=== PATIENT | male | born 1950 ===

== ENCOUNTER 2019-08-17 07:11 | Inpatient (IN) | payer MEDICARE ==
[~2019-08-17] VITALS: Ht 177.8 cm; Wt 93.6 kg
[2019-08-17] MEDS ORDERED: DIVA250T PO (12:00)
[2019-08-17] MEDS ORDERED: GABA-585 PO ×2 (12:00)
[2019-08-17] MEDS ORDERED: ALPR0.5T PO (12:00)
[2019-08-17] MEDS ORDERED: OMEP20CA16 PO (12:00)
[2019-08-17] MEDS ORDERED: TAMS0.4C97 PO (12:00)
[2019-08-17] MEDS ORDERED: AMAN100T PO (12:00)
[2019-08-17] MEDS ORDERED: ASPI-630 PO (12:00)
[2019-08-17] MEDS ORDERED: CARB1TAB22 PO (12:00)
[2019-08-17] MEDS ORDERED: carbidopa/levodopa PO (12:00)
[2019-08-17] MEDS ORDERED: DOCU100C28 PO (12:00)
[2019-08-17] MEDS ORDERED: QUET200T4 PO (12:00)
[2019-08-17] MEDS ORDERED: QUET50TA5 PO (12:00)
[2019-08-17] MEDS ORDERED: LEVO75TA5 PO (12:00)
[2019-08-17] MEDS ORDERED: LAMO100T37 PO (12:00)
[2019-08-17] MEDS ORDERED: MELA10TA2 PO (12:00)
[2019-08-17] MEDS ORDERED: CABE0.5T PO (12:00)
[2019-08-17] MEDS ORDERED: LAMO200T6 PO (15:55)
[2019-08-17 15:57] VITALS: BP 148/94
[2019-08-17] MEDS ORDERED: NON FORMULARY ITEM (Lamotrigine 200 MG) PO PRN (16:00)
[2019-08-17] MEDS ORDERED: MELA3TAB43 PO (16:02)
[2019-08-17] MEDS ORDERED: GLIP5TAB10 PO (16:02)
[2019-08-17] MEDS ORDERED: TRAZ-120 PO (16:09)
[2019-08-17] MEDS ORDERED: LORA-254 PO (16:09)
[2019-08-17] MEDS ORDERED: METHYL SALICYLATE/MENTHOL TOPICAL OINTMENT 57GM TUBE. TP PRN (16:15)
[2019-08-17] MEDS ORDERED: MAGNESIUM HYDROXIDE 2,400 MG/30 ML ORAL.SUSP. PO PRN (16:15)
[2019-08-17] MEDS ORDERED: ACETAMINOPHEN 325 MG TABLET PO PRN (16:15)
[2019-08-17] MEDS: CARBIDOPA/LEVODOPA 25/100MG TABLET PO SCH (16:30)
[2019-08-17] MEDS: QUEtiapine 100 MG TABLET. PO SCH (17:00)
[2019-08-17] MEDS: DIVALPROEX ER 250 MG TAB.ER.24H. PO SCH (17:00)
[2019-08-17 19:27] LABS: BASO % 1 % (0-3); EOS # 0.2 x10^3/uL (0.0-0.7); EOS % 6 % (0-3); HEMATOCRIT 37.5 % (39.0-53.0); HEMOGLOBIN 12.2 g/dL (13.0-17.5); LYMPH # 1.2 x10^3/uL (1.0-4.8); LYMPH % 40 % (24-48); MEAN CORPUSCULAR HEMOGLOBIN 29 pg (25-35); MEAN CORPUSCULAR HGB CONC 33 g/dL (31-37); MEAN CORPUSCULAR VOLUME 89 fL (79-100); MONO # 0.2 x10^3/uL (0.0-1.1); MONO % 7 % (0-9); NEUT # 1.4 x10^3uL (1.8-7.7); NEUT % 47 % (31-73); PLATELET COUNT 118 x10^3/uL (140-400); RED CELL DISTRIBUTION WIDTH 14.9 % (11.5-14.5); WHITE BLOOD COUNT 3.1 x10^3/uL (4.0-11.0)
[2019-08-17 19:41] LABS: ALBUMIN 3.7 g/dL (3.4-5.0); ALBUMIN/GLOBULIN RATIO 0.9 (1.0-1.7); ALK PHOS 96 U/L (46-116); ALT (SGPT) 16 U/L (16-63); ANION GAP 7 (6-14); AST (SGOT) 38 U/L (15-37); BLOOD UREA NITROGEN 35 mg/dL (8-26); BUN/CREATININE RATIO 18 (6-20); CALCIUM 9.3 mg/dL (8.5-10.1); CARBON DIOXIDE 30 mmol/L (21-32); CHLORIDE 103 mmol/L (98-107); GFR 33.4; GLUCOSE 171 mg/dL (70-99); MAGNESIUM 1.6 mg/dL (1.8-2.4); POTASSIUM 4.9 mmol/L (3.5-5.1); SODIUM 140 mmol/L (136-145); TOTAL BILIRUBIN 0.2 mg/dL (0.2-1.0); TOTAL PROTEIN 7.6 g/dL (6.4-8.2)
[2019-08-17 19:43] LABS: VAL ACID 10 mcg/mL (50-100)
[2019-08-17] MEDS: MELATONIN 3 MG TABLET PO SCH (21:00)
[2019-08-17] MEDS: LORazepam 0.5 MG TABLET PO SCH (21:00)
[2019-08-17] MEDS: traZODone 50 MG TABLET. PO SCH (21:00)
[2019-08-17] MEDS: QUEtiapine 50 MG TABLET. PO SCH (21:00)
[2019-08-17] MEDS: DOCUSATE SODIUM 100 MG CAPSULE PO SCH (21:00)
--- NOTE | 2019-08-17 21:58 | PDOC ---
Exam Note: Vance Note: Please also refer to the separate dictated note~for this date of service dictated separately. Discussed the patient with Nursing staff reviewed the chart.~Reviewed interim history and current functioning. Reviewed vital signs,~Labs/ Radiology~and current medications noted below. Continue current treatment with the changes noted in the dictated addendum note Assessment: Vital Signs/I&O: Vital Signs Date Time Temp Pulse Resp B/P (MAP) Pulse Ox O2 Delivery O2 Flow Rate FiO2 08/17/19 21:01 98.2 95 08/17/19 15:57 71 18 148/94 (112) Labs: Laboratory Tests Test 08/17/19 19:15 White Blood Count 3.1 x10^3/uL (4.0-11.0) L Red Blood Count 4.20 x10^6/uL (4.30-5.70) L Hemoglobin 12.2 g/dL (13.0-17.5) L Hematocrit 37.5 % (39.0-53.0) L Mean Corpuscular Volume 89 fL (79-100) Mean Corpuscular Hemoglobin 29 pg (25-35) Mean Corpuscular Hemoglobin Concent 33 g/dL (31-37) Red Cell Distribution Width 14.9 % (11.5-14.5) H Platelet Count 118 x10^3/uL (140-400) L Neutrophils (%) (Auto) 47 % (31-73) Lymphocytes (%) (Auto) 40 % (24-48) Monocytes (%) (Auto) 7 % (0-9) Eosinophils (%) (Auto) 6 % (0-3) H Basophils (%) (Auto) 1 % (0-3) Neutrophils # (Auto) 1.4 x10^3uL (1.8-7.7) L Lymphocytes # (Auto) 1.2 x10^3/uL (1.0-4.8) Monocytes # (Auto) 0.2 x10^3/uL (0.0-1.1) Eosinophils # (Auto) 0.2 x10^3/uL (0.0-0.7) Basophils # (Auto) 0.0 x10^3/uL (0.0-0.2) Sodium Level 140 mmol/L (136-145) Potassium Level 4.9 mmol/L (3.5-5.1) Chloride Level 103 mmol/L (98-107) Carbon Dioxide Level 30 mmol/L (21-32) Anion Gap 7 (6-14) Blood Urea Nitrogen 35 mg/dL (8-26) H Creatinine 2.0 mg/dL (0.7-1.3) H Estimated GFR (Cockcroft-Gault) 33.4 BUN/Creatinine Ratio 18 (6-20) Glucose Level 171 mg/dL (70-99) H Calcium Level 9.3 mg/dL (8.5-10.1) Magnesium Level 1.6 mg/dL (1.8-2.4) L Total Bilirubin 0.2 mg/dL (0.2-1.0) Aspartate Amino Transferase (AST) 38 U/L (15-37) H Alanine Aminotransferase (ALT) 16 U/L (16-63) Alkaline Phosphatase 96 U/L (46-116) Total Protein 7.6 g/dL (6.4-8.2) Albumin 3.7 g/dL (3.4-5.0) Albumin/Globulin Ratio 0.9 (1.0-1.7) L Valproic Acid Level 10 mcg/mL (50-100) L Valproic Acid Last Dose Date 08/16/19 Valproic Acid Last Dose Time 2100 Current Medications: Meds: Current Medications Medications (Trade) Dose Ordered Sig/Daniel Route PRN Reason Start Time Stop Time Status Last Admin Dose Admin Carbidopa/Levodopa (Sinemet 25/100) 2 tab TIDBFRMEAL PO 08/17/19 16:30 08/17/19 16:30 Quetiapine Fumarate (SEROquel) 200 mg DAILYBFRSUP PO 08/17/19 17:00 08/17/19 17:00 I have reviewed the current psychotropics carefully including drug interactions. Risk benefit ratio favors no change other than as noted in my dictated progress note. BARON GOLDEN MD August 17, 2019 21:58
[2019-08-18] MEDS: MAG HYDROX/AL HYDROX/SIMETH 30 ML ORAL.SUSP PO PRN ×2 (02:56→08:56)
[2019-08-18 03:54] LABS: BILIRUBIN,URINE NEG (NEG); CLARITY,URINE CLEAR; COLOR,URINE YELLOW; GLUCOSE,URINE NEG (NEG); NITRITE,URINE NEG (NEG); RBC,URINE 0 /HPF (0-2); UROBILINOGEN,URINE 0.2 mg/dL (0.2 mg/dL)
[2019-08-18 03:55] LABS: BACTERIA,URINE 0 /HPF (0-FEW); WBC,URINE RARE /HPF (0-4)
[2019-08-18 05:35] VITALS: BP 106/70
[2019-08-18] MEDS ORDERED: glipiZIDE 5 MG TABLET PO SCH (07:00)
[2019-08-18] MEDS: LORazepam 0.5 MG TABLET PO SCH ×2 (08:55→20:19)
[2019-08-18] MEDS: CARBIDOPA/LEVODOPA 25/100MG TABLET PO SCH ×3 (08:55→16:56)
[2019-08-18] MEDS: DOCUSATE SODIUM 100 MG CAPSULE PO SCH ×2 (08:55→20:18)
[2019-08-18] MEDS: LEVOTHYROXINE 75 MCG TABLET PO SCH (08:55)
[2019-08-18] MEDS: QUEtiapine 50 MG TABLET. PO SCH ×3 (08:56→20:19)
[2019-08-18 10:15] LABS: THYROID STIM HORMONE (TSH) 1.344 uIU/mL (0.358-3.740)
[2019-08-18] MEDS: AMANTADINE HCL 100 MG CAPSULE PO SCH ×2 (12:56→16:59)
[2019-08-18 14:07] LABS: THYROXINE 4.7 ug/dL (4.5-12.0)
--- NOTE | 2019-08-18 14:14 | HP ---
ADMIT DATE: 08/17/2019 This is a late entry, date of service 08/17/2019, covers elements not covered in my initial note. SUBJECTIVE: I met with the patient evening of 08/17/2019. Previously discussed with Kina Osborn, travel coordinator and nursing staff. IDENTIFYING DATA: The patient is a 69-year-old male referred to us from the [facility] in [place], referred by his primary care physician, Dr. Chano Fitch and psychiatrist, Dr. Valentina De La Cruz on account of having periods of paranoia and agitation. He has been refusing his medications for bipolar disorder. He has been having active hallucinations and states God is telling him he is a bad person. He has been seeing bugs of pieces of small paper around him. He thinks the TV talks about him badly. He has been anxious, combative, having marked insomnia. He has been worried about and dying. Medically, he does have a history of orthostatic hypotension. All this was obtained from the intake evaluation and this is despite medical stabilization. He had to be placed in restraints on 08/12/2019 and this was discontinued on 08/13/2019, back on restraints on 08/13/2019 and then this was ultimately discontinued 08/14/2019. The patient has failed psychiatric stabilization at a lower level of care. He is hyper-jainism with mixed symptoms of bipolar disorder and a long history of bipolar disorder, previously treated on lithium. He is referred for inpatient psychiatric stabilization. CHIEF COMPLAINT: "I was on lithium in the past. Dr. Tarah Sosa had me on it. It cut my kidney function down to half. Yes, I have been having all these problems. I am not sure why." HISTORY OF PRESENT ILLNESS: The patient has a long history of bipolar disorder, mixed type. More recently, he has been paranoid, psychotic, agitated with marked mood vacillations. Some of his symptoms have been compromised by his bilateral hearing loss and additional diagnosis of Parkinson disease. No active suicidal or homicidal ideation. He continues to have significant mood swings. PAST PSYCHIATRIC HISTORY: As noted above. He is unaware of the other psychotropics he has been on in the past other than lithium and his current psychotropics. MEDICAL HISTORY: Positive for history of toxic metabolic encephalopathy; type 2 diabetes mellitus; hyperlipidemia; GERD; hypothyroidism; bilateral hearing loss; chronic kidney disease type 2; anemia; Parkinson disease; pacemaker in place; history of pituitary tumor treated about 10 years ago, but he states his symptoms of bipolar disorder predated the pituitary tumor by several decades; history of orthostatic hypotension. DIET: Dysphagia-Mechanical altered. DRUG ALLERGIES: Negative. CODE STATUS: DNR. Ambulates in a wheelchair. CURRENT PSYCHOTROPICS: Ativan 0.5 mg b.i.d., lamotrigine 100 mg b.i.d., melatonin 9 mg at bedtime, Seroquel 200 mg at bedtime and 50 mg t.i.d., Depakote 250 mg at supper, trazodone 75 mg at bedtime. FAMILY HISTORY: Noncontributory. SOCIAL HISTORY: The patient is admitted by his , Radha Ortega, who is his power of state's attorney. He has been unmanageable at home by his who additionally has medical disability herself. The plan is for him to be psychiatrically stabilized going to skilled rehabilitation and then ultimately return home. No alcohol or drug abuse, physical, sexual or elder abuse history is noted. Not known to be a perpetrator. REACTION TO HOSPITALIZATION: The patient accepting of it. ASSETS: Supportive family, cognitively reasonably intact. REVIEW OF SYSTEMS: Ambulation impaired, in wheelchair. No CV, , pulmonary, eye system symptoms on review. MENTAL STATUS EXAMINATION: The patient is reasonably oriented as I met with him evening of 08/17/2019. He remembered his past treatment with Dr. Tarah Sosa who has since moved out of town many years ago. He however did not remember the name of his prior psychotropics other than lithium and his current psychotropics. Speech is coherent, abstraction fair, computation impaired. He is hard of hearing, I had to talk loudly. He remains somewhat paranoid, suspicious, distractable. No active suicidal or homicidal ideation. IMPRESSION: Bipolar disorder, mixed with psychotic features; anxiety disorder, unspecified; psychotic disorder, unspecified. Rest diagnoses as above. PLAN: Admit to Geropsychiatry Unit at [facility]. I will see the patient daily individually from a psychiatric standpoint. Medical followup with Dr. Ivy/Dr. Gutierrez. Continue the patient on his current psychotropics. Apparently, his Sinemet was recently adjusted. We may consult Dr. Habib, Neurology to see if the Sinemet could be worsening some of his psychosis and agitation and may have to be readjusted. Given his history of mixed bipolar disorder, it is unclear whether lamotrigine would be of significant benefit. He may do better with a therapeutic dosage of Depakote and I will try and avoid the combination of Depakote and lamotrigine, may consider stopping the lamotrigine and adjusting the Depakote, but will make this decision post baseline assessment. We will obtain past psychiatric records. I will see him daily individually. ESTIMATED LENGTH OF STAY: 10-12 days. DISPOSITION: Plans to care home care at discharge and thereafter possibly to home. MAN Joel GOLDEN MD DR: ARISTIDES/neena JOB#: [id number] / [id number]
--- NOTE | 2019-08-18 14:43 | CONS ---
DATE OF CONSULTATION: 08/18/2019 ATTENDING PHYSICIAN: Dr. Moctezuma, Dr. Ceja. REASON FOR CONSULTATION: We are asked to see this patient for medical consultation. HISTORY OF PRESENT ILLNESS: The patient is a very pleasant 69-year-old gentleman admitted with behavioral issues. He [facility]. He has issues with Parkinson's disease, bipolar disorder type 1. PAST MEDICAL HISTORY: Also significant for type 2 diabetes, chronic kidney disease stage 3, hypothyroidism on replacement, benign prostatic hypertrophy, gastroesophageal reflux disease, iron deficiency anemia, pancytopenia, and hyperlipidemia. ALLERGIES: He has no known drug allergies. CURRENT MEDICINES: Reviewed. He was taking amantadine, cabergoline, Sinemet, Depakote, docusate, glipizide, Lamictal, Synthroid, lorazepam, melatonin, Seroquel and trazodone. SOCIAL HISTORY: He is a nonsmoker, nondrinker. 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 He is a [facility] patient. He lives with his . He has no insight as to why he is here. REVIEW OF SYSTEMS: Unobtainable. Much of the history is obtained from the chart and old records. FAMILY HISTORY: Unobtainable. PHYSICAL EXAMINATION: GENERAL: When I saw him, this is a pleasant gentleman. He is not in acute distress. INITIAL VITAL SIGNS: Showed a blood pressure 106/70, pulse is 70 and regular, temperature 97.7 degrees Fahrenheit, oxygen saturation 95% on room air. HEENT: Head is without trauma. Pupils are reactive. Sclerae nonicteric. Oropharynx is clear. NECK: Supple, no bruits noted. No thyromegaly. LUNGS: Otherwise clear. CARDIOVASCULAR: Showed regular heart tones. Normal S1, S2. No obvious gallops. Peripheral pulses are palpable and full. ABDOMEN: Soft, obese, protuberant. No organomegaly. Bowel sounds were normoactive. EXTREMITIES: Showed no cyanosis or edema. NEUROLOGIC: Focally intact. Speech is fluent. PERTINENT LABORATORY DATA: His hemoglobin is 12.2 g/dL with white count of 3100. Electrolytes showed potassium of 4.9 mEq. BUN 35, creatinine 2.0 mg/dL, nonfasting blood sugar 171. Transaminases and liver function were normal. ASSESSMENT: 1. A 69-year-old gentleman with mixed bipolar disease. 2. Moderate dementia. 3. Parkinson's disease. 4. Type 2 diabetes mellitus. 5. Chronic kidney disease stage 3. 6. Hypothyroidism on replacement. 7. Gastroesophageal reflux disease. 8. Hyperlipidemia. RECOMMENDATIONS: 1. This patient is stable from a medical standpoint. 2. Meds were reviewed. No changes indicated at this time. 3. Diabetic diet as tolerated. Thank you so much for asking me to see this patient for consultation. We should gladly follow along during his inpatient course. ADRIANNE CEJA MD DR: JIE/neena JOB#: [id number] / [id number]
[2019-08-18 16:25] VITALS: BP 132/95
[2019-08-18] MEDS: DIVALPROEX ER 250 MG TAB.ER.24H. PO SCH (16:56)
[2019-08-18] MEDS: QUEtiapine 100 MG TABLET. PO SCH (16:59)
[2019-08-18] MEDS: MELATONIN 3 MG TABLET PO SCH (20:17)
[2019-08-18] MEDS: traZODone 50 MG TABLET. PO SCH (20:19)
--- NOTE | 2019-08-18 22:12 | PDOC ---
Exam Note: Vance Note: Please also refer to the separate dictated note~for this date of service dictated separately.~Patient seen individually. Discussed the patient with Nursing staff reviewed the chart.~Reviewed interim history and current functioning. Reviewed vital signs,~Labs/ Radiology~and current medications noted below. Continue current treatment with the changes noted in the dictated addendum note Assessment: Vital Signs/I&O: Vital Signs Date Time Temp Pulse Resp B/P (MAP) Pulse Ox O2 Delivery O2 Flow Rate FiO2 08/18/19 21:08 97.6 96 08/18/19 16:25 57 132/95 (107) 08/18/19 05:35 14 I & O 08/17/19 08/17/19 08/18/19 15:00 23:00 07:00 Intake Total 360 ml Balance 360 ml Labs: Laboratory Tests Test 08/18/19 03:25 08/18/19 08:12 Urine Collection Type Unknown Urine Color Yellow Urine Clarity Clear Urine pH 7.0 Urine Specific [place] 1.020 Urine Protein Neg (NEG-TRACE) Urine Glucose (UA) Neg mg/dL (NEG) Urine Ketones (Stick) Neg mg/dL (NEG) Urine Blood Neg (NEG) Urine Nitrite Neg (NEG) Urine Bilirubin Neg (NEG) Urine Urobilinogen Dipstick 0.2 mg/dL (0.2 mg/dL) Urine Leukocyte Esterase Neg (NEG) Urine RBC 0 /HPF (0-2) Urine WBC Rare /HPF (0-4) Urine Squamous Epithelial Cells None /LPF Urine Bacteria 0 /HPF (0-FEW) Glucose (Fingerstick) 99 mg/dL (70-99) Current Medications: Meds: Current Medications Medications (Trade) Dose Ordered Sig/Daniel Route PRN Reason Start Time Stop Time Status Last Admin Dose Admin Glipizide (Glucotrol) 5 mg DAILY07 PO 08/18/19 07:00 08/18/19 08:55 Levothyroxine Sodium (Synthroid) 75 mcg DAILYAC PO 08/18/19 07:30 08/18/19 08:55 Amantadine HCl (Symmetrel) 100 mg BIDBFRMEAL PO 08/18/19 07:30 08/18/19 16:59 I have reviewed the current psychotropics carefully including drug interactions. Risk benefit ratio favors no change other than as noted in my dictated progress note. Diagnosis: Problems: (1) Bipolar disorder, current episode mixed, severe, with psychotic features (2) Psychotic disorder (3) Anxiety disorder, unspecified BARON GOLDEN MD August 18, 2019 22:12
[2019-08-19 04:06] LABS: HEMOGLOBIN A1C 5.4 % (4.8-5.6)
[2019-08-19 06:21] VITALS: BP 111/68
[2019-08-19] MEDS: DOCUSATE SODIUM 100 MG CAPSULE PO SCH ×2 (08:42→20:22)
[2019-08-19] MEDS: LEVOTHYROXINE 75 MCG TABLET PO SCH (08:42)
[2019-08-19] MEDS: CARBIDOPA/LEVODOPA 25/100MG TABLET PO SCH ×3 (08:42→16:52)
[2019-08-19] MEDS: QUEtiapine 50 MG TABLET. PO SCH ×3 (08:42→20:23)
[2019-08-19] MEDS: glipiZIDE 5 MG TABLET PO SCH (08:43)
[2019-08-19] MEDS: AMANTADINE HCL 100 MG CAPSULE PO SCH ×2 (08:43→16:52)
[2019-08-19] MEDS: LORazepam 0.5 MG TABLET PO SCH ×2 (08:43→20:22)
[2019-08-19] MEDS: MAG HYDROX/AL HYDROX/SIMETH 30 ML ORAL.SUSP PO PRN (09:57)
[2019-08-19 10:00] LABS: BASO % 1 % (0-3); EOS # 0.2 x10^3/uL (0.0-0.7); EOS % 4 % (0-3); HEMATOCRIT 38.2 % (39.0-53.0); HEMOGLOBIN 12.6 g/dL (13.0-17.5); LYMPH # 1.2 x10^3/uL (1.0-4.8); LYMPH % 27 % (24-48); MEAN CORPUSCULAR HEMOGLOBIN 30 pg (25-35); MEAN CORPUSCULAR HGB CONC 33 g/dL (31-37); MEAN CORPUSCULAR VOLUME 90 fL (79-100); MONO # 0.3 x10^3/uL (0.0-1.1); MONO % 7 % (0-9); NEUT # 2.8 x10^3uL (1.8-7.7); NEUT % 61 % (31-73); PLATELET COUNT 127 x10^3/uL (140-400); RED BLOOD COUNT 4.27 x10^6/uL (4.30-5.70); RED CELL DISTRIBUTION WIDTH 15.2 % (11.5-14.5); WHITE BLOOD COUNT 4.5 x10^3/uL (4.0-11.0)
[2019-08-19] MEDS ORDERED: OMEP20CA16 PO (10:05)
[2019-08-19 10:18] LABS: CALCIUM 9.3 mg/dL (8.5-10.1); CREATININE 1.8 mg/dL (0.7-1.3); GFR 37.7; POTASSIUM 4.7 mmol/L (3.5-5.1)
--- NOTE | 2019-08-19 10:35 | TX PLAN ---
Interdisciplinary Tx Plan Admission Information August 17, 2019 at 15:32 Legal Status (on Admission): Voluntary DPOA/Guardian Name: Arthur Ortega Contact Verified Code Status: DNR Allergies: Coded Allergies: No Known Drug Allergies (Unverified , 08/17/19) Diagnoses Primary Diagnosis: Bipolar mixed, with psychotic features Reasons for Admission: Delusions, Sig. Change Sleep, Anxiety/Panic, Hallucinations, Suspicious/paranoid, Poor impulse control Problem in Patient's Words: I'm not sure if this is part of his Bipolar D/O or his Parkinson's, but he is getting worse. Additional Admission Comments: According to the intake, pt has periods of paranoia, delusions (seeing bugs and piecs of small paper on him) and agitation. Pt is hallucinating stating "God is telling him he's a bad person", thinks the TV is talking about him, anxious and at times combative Problems Active Problems: Agitation Delusions Hallucinations In isolation until 08/20/2019 Inactive Problems: Medication compliant Pt Strengths/Limitations Ability for [place]: Poor Cognitive Functioning/Ability: Fair Communication Skills/Ability: Fair Financial Resources: Fair Insight/Judgement: Fair Intellectual Ability: Poor Physical Health: Poor Social Skills: Fair Stability in Family: Good Stability in School/Work: Poor Verbal Skills: Fair Discharge Criteria Discharge Criteria: Able meet basic life need, Adequate arrangements @DC, Im proved behavior, Improved mood/thought Preliminary Discharge Plan Preliminary DC Plan: Acute Rehab Special Precautions Fall Risk: Moderate Initial D/C Plan Pt is requesting that pt attend rehab at [facility] at discharge Identified Discharge Needs: Continued mental health services Currently Utilized Resources Currently Utilized Resources/P: [facility] -- primary care physician and psychiatrist Referrals Community Resources: referral for placement Identified Problems/Hx/Goals Objectives/Short-Term Goals Short Term Goals: Dec. Hallucination/Delus, Dec. Outbursts, Improved Social Skills, Medication Stabilization, Promote Coping Skill Short Term Goals in Patient's: Medication and behavioral mgmt Interventions/Frequency Staff Interventions/Frequency&: Psychiatrist to assess pt at least 3x per week. Social Work to assess pt at least 2x per week. Nursing to assess medications, behavior and complete 15 minute checks daily. Encourage participation in group activities or 1:1 engagement based of activity assessment and goals. 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 Community Provider/Family Inpu: I need him to be in a position to where he can be safe and keep him at home as long as we can. Treatment Plan Explained Patient/Compound Machine Operator had this treatment plan explained to him/her as indicated by the signature below and has been given the opportunity to ask questions and make suggestions: Date: Patient/Compound Machine Operator Signature: Patient/Compound Machine Operator Decline: No (Pt is active within pt care at [facility].) VONDA SALEH Aug 19, 2019 10:35
[2019-08-19] MEDS ORDERED: traZODone 50 MG TABLET. PO PRN (12:00)
[2019-08-19] MEDS: PANTOPRAZOLE 40 MG TABLET. PO SCH (13:54)
[2019-08-19 15:45] VITALS: BP 126/78
[2019-08-19] MEDS: DIVALPROEX ER 250 MG TAB.ER.24H. PO SCH (16:52)
[2019-08-19] MEDS: QUEtiapine 100 MG TABLET. PO SCH (16:52)
[2019-08-19] MEDS: CABERGOLINE 0.25 MG PO SCH (16:53)
[2019-08-19] MEDS: MELATONIN 3 MG TABLET PO SCH (20:21)
[2019-08-19] MEDS: traZODone 50 MG TABLET. PO SCH (20:22)
--- NOTE | 2019-08-19 22:08 | PDOC ---
Exam Note: Vance Note: Please also refer to the separate dictated note~for this date of service dictated separately.~Patient seen individually. Discussed the patient with Nursing staff reviewed the chart.~Reviewed interim history and current functioning. Reviewed vital signs,~Labs/ Radiology~and current medications noted below. Continue current treatment with the changes noted in the dictated addendum note Assessment: Vital Signs/I&O: Vital Signs Date Time Temp Pulse Resp B/P (MAP) Pulse Ox O2 Delivery O2 Flow Rate FiO2 08/19/19 18:35 97.2 08/19/19 15:45 79 18 126/78 (94) 99 I & O 08/18/19 08/18/19 08/19/19 15:00 23:00 07:00 Intake Total 960 ml 320 ml Balance 960 ml 320 ml Labs: Laboratory Tests Test 08/19/19 07:36 08/19/19 09:47 Glucose (Fingerstick) 70 mg/dL (70-99) White Blood Count 4.5 x10^3/uL (4.0-11.0) Red Blood Count 4.27 x10^6/uL (4.30-5.70) L Hemoglobin 12.6 g/dL (13.0-17.5) L Hematocrit 38.2 % (39.0-53.0) L Mean Corpuscular Volume 90 fL (79-100) Mean Corpuscular Hemoglobin 30 pg (25-35) Mean Corpuscular Hemoglobin Concent 33 g/dL (31-37) Red Cell Distribution Width 15.2 % (11.5-14.5) H Platelet Count 127 x10^3/uL (140-400) L Neutrophils (%) (Auto) 61 % (31-73) Lymphocytes (%) (Auto) 27 % (24-48) Monocytes (%) (Auto) 7 % (0-9) Eosinophils (%) (Auto) 4 % (0-3) H Basophils (%) (Auto) 1 % (0-3) Neutrophils # (Auto) 2.8 x10^3uL (1.8-7.7) Lymphocytes # (Auto) 1.2 x10^3/uL (1.0-4.8) Monocytes # (Auto) 0.3 x10^3/uL (0.0-1.1) Eosinophils # (Auto) 0.2 x10^3/uL (0.0-0.7) Basophils # (Auto) 0.0 x10^3/uL (0.0-0.2) Sodium Level 141 mmol/L (136-145) Potassium Level 4.7 mmol/L (3.5-5.1) Chloride Level 102 mmol/L (98-107) Carbon Dioxide Level 30 mmol/L (21-32) Anion Gap 9 (6-14) Blood Urea Nitrogen 38 mg/dL (8-26) H Creatinine 1.8 mg/dL (0.7-1.3) H Estimated GFR (Cockcroft-Gault) 37.7 Glucose Level 158 mg/dL (70-99) H Calcium Level 9.3 mg/dL (8.5-10.1) Current Medications: Meds: Current Medications Medications (Trade) Dose Ordered Sig/Daniel Route PRN Reason Start Time Stop Time Status Last Admin Dose Admin Non-Formulary Medication (Cabergoline ) 0.25 mg QMTH PO 08/19/19 16:00 08/19/19 16:53 Glipizide (Glucotrol) 5 mg DAILYAC PO 08/19/19 07:30 08/19/19 08:43 Pantoprazole Sodium (Protonix) 40 mg DAILYAC PO 08/19/19 12:30 08/19/19 13:54 Trazodone HCl (Desyrel) 75 mg HS PO 08/19/19 21:00 08/19/19 20:22 I have reviewed the current psychotropics carefully including drug interactions. Risk benefit ratio favors no change other than as noted in my dictated progress note. Diagnosis: Problems: (1) Psychotic disorder (2) Anxiety disorder, unspecified (3) Bipolar disorder, current episode mixed, severe, with psychotic features BARON GOLDEN MD Aug 19, 2019 22:08
[2019-08-20 06:39] VITALS: BP 103/67
--- NOTE | 2019-08-20 06:52 | PDOC ---
Exam Note: Vance Note: This note is a late entry for 08/18/2019 covers elements not covered in my initial note. Subjective: The patient was seen face to face in the evening of 08/18/2019. Nursing report was with Jennifer LORD. Discussed the patient with nursing staff in the evening reviewed the chart. He slept 3-3/4 hours previous night. Nursing called me on 2-3 occasions to clarify his Lamictal. Pharmacy had questioned using Lamictal and Depakote in combination. We did contact the patients who indicated Lamictal was being used as a mood stabilizer since he had had some tremors when he was in combination of Depakote and Risperdal and both of these were changed Risperdal to Seroquel and Depakote was reduced, lamotrigine added at that time. He never had any seizure disorder. At one point he was on Depakote 500 mg t.i.d. for his mood stabilization for bipolar disorder. Review of Systems: Ambulation impaired, in wheelchair. No CV, GI/, Pulmonary, Eye, system symptoms on review. Mental Status Exam: Reasonably oriented. He was seen in his room. Speech is coherent, has some latency, less pressured. Abstraction fair. Computation impaired. Language function intact. Attention span short. No suicidal or homicidal ideation. Laboratory Data: Reviewed. Impression: Bipolar disorder, mixed with psychotic features. Anxiety disorder unspecified. Plan: I do not feel Lamictal is adequate to control his moods and we will stop this gradually, increase the Depakote and continue rest of the psychotropics. Hopefully he will not have tremors since he is no longer on the Risperdal with the Depakote, but if he does and these are extremely disabling, we may consider Tegretol as a mood stabilizer since he has been unable to tolerate lithium in the past with renal effects. Assessment: Vital Signs/I&O: Vital Signs Date Time Temp Pulse Resp B/P (MAP) Pulse Ox O2 Delivery O2 Flow Rate FiO2 08/20/19 06:39 97.7 80 20 103/67 (79) 98 I & O 08/19/19 08/19/19 08/20/19 15:00 23:00 07:00 Intake Total 720 ml 240 ml Balance 720 ml 240 ml Labs: Laboratory Tests Test 08/19/19 07:36 08/19/19 09:47 Glucose (Fingerstick) 70 mg/dL (70-99) White Blood Count 4.5 x10^3/uL (4.0-11.0) Red Blood Count 4.27 x10^6/uL (4.30-5.70) L Hemoglobin 12.6 g/dL (13.0-17.5) L Hematocrit 38.2 % (39.0-53.0) L Mean Corpuscular Volume 90 fL (79-100) Mean Corpuscular Hemoglobin 30 pg (25-35) Mean Corpuscular Hemoglobin Concent 33 g/dL (31-37) Red Cell Distribution Width 15.2 % (11.5-14.5) H Platelet Count 127 x10^3/uL (140-400) L Neutrophils (%) (Auto) 61 % (31-73) Lymphocytes (%) (Auto) 27 % (24-48) Monocytes (%) (Auto) 7 % (0-9) Eosinophils (%) (Auto) 4 % (0-3) H Basophils (%) (Auto) 1 % (0-3) Neutrophils # (Auto) 2.8 x10^3uL (1.8-7.7) Lymphocytes # (Auto) 1.2 x10^3/uL (1.0-4.8) Monocytes # (Auto) 0.3 x10^3/uL (0.0-1.1) Eosinophils # (Auto) 0.2 x10^3/uL (0.0-0.7) Basophils # (Auto) 0.0 x10^3/uL (0.0-0.2) Sodium Level 141 mmol/L (136-145) Potassium Level 4.7 mmol/L (3.5-5.1) Chloride Level 102 mmol/L (98-107) Carbon Dioxide Level 30 mmol/L (21-32) Anion Gap 9 (6-14) Blood Urea Nitrogen 38 mg/dL (8-26) H Creatinine 1.8 mg/dL (0.7-1.3) H Estimated GFR (Cockcroft-Gault) 37.7 Glucose Level 158 mg/dL (70-99) H Calcium Level 9.3 mg/dL (8.5-10.1) Current Medications: Meds: Current Medications Medications (Trade) Dose Ordered Sig/Daniel Route PRN Reason Start Time Stop Time Status Last Admin Dose Admin Non-Formulary Medication (Cabergoline ) 0.25 mg QMTH PO 08/19/19 16:00 08/19/19 16:53 Glipizide (Glucotrol) 5 mg DAILYAC PO 08/19/19 07:30 08/19/19 08:43 Pantoprazole Sodium (Protonix) 40 mg DAILYAC PO 08/19/19 12:30 08/19/19 13:54 Trazodone HCl (Desyrel) 75 mg HS PO 08/19/19 21:00 08/19/19 20:22 I have reviewed the current psychotropics carefully including drug interactions. Risk benefit ratio favors no change other than as noted in my dictated progress note. Diagnosis: Problems: (1) Psychotic disorder (2) Anxiety disorder, unspecified (3) Bipolar disorder, current episode mixed, severe, with psychotic features BARON GOLDEN MD Aug 20, 2019 06:52
[2019-08-20] MEDS ORDERED: PANTOPRAZOLE 40 MG TABLET. PO SCH (07:30)
[2019-08-20] MEDS: QUEtiapine 50 MG TABLET. PO SCH ×3 (08:09→19:57)
[2019-08-20] MEDS: CARBIDOPA/LEVODOPA 25/100MG TABLET PO SCH ×3 (08:09→17:54)
[2019-08-20] MEDS: DOCUSATE SODIUM 100 MG CAPSULE PO SCH ×2 (08:09→19:57)
[2019-08-20] MEDS: glipiZIDE 5 MG TABLET PO SCH (08:09)
[2019-08-20] MEDS: PANTOPRAZOLE 40 MG TABLET. PO SCH (08:09)
[2019-08-20] MEDS: LORazepam 0.5 MG TABLET PO SCH ×2 (08:09→19:57)
[2019-08-20] MEDS: LEVOTHYROXINE 75 MCG TABLET PO SCH (08:10)
[2019-08-20] MEDS: AMANTADINE HCL 100 MG CAPSULE PO SCH ×2 (08:12→16:30)
[2019-08-20] MEDS ORDERED: NON FORMULARY ITEM (Omeprazole 1 CAP) PO SCH (09:00)
[2019-08-20 15:59] VITALS: BP 114/75
[2019-08-20] MEDS: QUEtiapine 100 MG TABLET. PO SCH (17:53)
[2019-08-20] MEDS: DIVALPROEX ER 250 MG TAB.ER.24H. PO SCH (17:54)
[2019-08-20] MEDS: traZODone 50 MG TABLET. PO SCH (19:57)
[2019-08-20] MEDS: MELATONIN 3 MG TABLET PO SCH (19:58)
--- NOTE | 2019-08-20 21:41 | PDOC ---
Exam Note: Vance Note: Please also refer to the separate dictated note~for this date of service dictated separately.~Patient seen individually. Discussed the patient with Nursing staff reviewed the chart.~Reviewed interim history and current functioning. Reviewed vital signs,~Labs/ Radiology~and current medications noted below. Continue current treatment with the changes noted in the dictated addendum note Assessment: Vital Signs/I&O: Vital Signs Date Time Temp Pulse Resp B/P (MAP) Pulse Ox O2 Delivery O2 Flow Rate FiO2 08/20/19 18:20 97.9 08/20/19 15:59 76 18 114/75 (88) 98 I & O 08/19/19 08/19/19 08/20/19 15:00 23:00 07:00 Intake Total 720 ml 240 ml Balance 720 ml 240 ml Labs: Laboratory Tests Test 08/20/19 08:00 Glucose (Fingerstick) 98 mg/dL (70-99) Current Medications: I have reviewed the current psychotropics carefully including drug interactions. Risk benefit ratio favors no change other than as noted in my dictated progress note. Diagnosis: Problems: (1) Psychotic disorder (2) Anxiety disorder, unspecified (3) Bipolar disorder, current episode mixed, severe, with psychotic features BARON GOLDEN MD Aug 20, 2019 21:41
[2019-08-21 06:03] VITALS: BP 101/66
[2019-08-21 06:11] VITALS: BP 101/66
[2019-08-21 06:39] LABS: BASO % 1 % (0-3); EOS # 0.2 x10^3/uL (0.0-0.7); EOS % 4 % (0-3); HEMATOCRIT 35.4 % (39.0-53.0); HEMOGLOBIN 11.7 g/dL (13.0-17.5); LYMPH # 1.4 x10^3/uL (1.0-4.8); LYMPH % 40 % (24-48); MEAN CORPUSCULAR HEMOGLOBIN 29 pg (25-35); MEAN CORPUSCULAR HGB CONC 33 g/dL (31-37); MEAN CORPUSCULAR VOLUME 88 fL (79-100); MONO # 0.3 x10^3/uL (0.0-1.1); MONO % 10 % (0-9); NEUT # 1.6 x10^3uL (1.8-7.7); NEUT % 45 % (31-73); PLATELET COUNT 121 x10^3/uL (140-400); RED BLOOD COUNT 4.03 x10^6/uL (4.30-5.70); RED CELL DISTRIBUTION WIDTH 14.8 % (11.5-14.5); WHITE BLOOD COUNT 3.5 x10^3/uL (4.0-11.0)
[2019-08-21 06:54] LABS: ALBUMIN 3.5 g/dL (3.4-5.0); CREATININE 1.8 mg/dL (0.7-1.3); GFR 37.7; POTASSIUM 4.4 mmol/L (3.5-5.1); TOTAL BILIRUBIN 0.2 mg/dL (0.2-1.0); TOTAL PROTEIN 7.1 g/dL (6.4-8.2)
--- NOTE | 2019-08-21 07:21 | PDOC ---
Exam Note: Vance Note: This note is a late entry for 08/19/2019 covers elements not covered in my initial note. Subjective: The patient was seen face to face with the treatment team in the morning of 08/19/2019 including Kina Lopez, and Paloma (social services coordinator), Loren, Activity [facility]. Nursing report was with Sarabjit LORD. Discussed the patients progress, diagnoses, psychosocial history, current psychotropics, discharge plans, current behaviors, sleep and appetite intake and social interactions. I met with the patient in the evening. The patients Radha was to attend but was unavailable. He has been somewhat obsessive, anxious, particular and needy. He slept poorly previous night 3-1/2 hours. At times he is calmer, compliant, still anxious, ambulated for a while in a walker. 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 We will request past psychiatric records of his bipolar disorder and also consult Dr. Bland for management of his Parkinsons. Review of Systems: Ambulation impaired, with walker. No CV, GI/, Pulmonary, Eye, system symptoms on review. Mental Status Exam: Alert, oriented, quite verbal, interactive as I met with him in his room at length in the evening. Speech is coherent. Abstraction fair. Computation impaired. Language function intact. Mood and affect still somewhat anxious, labile. No suicidal or homicidal ideation. Laboratory Data: Reviewed. Impression: Bipolar disorder, mixed with psychotic features. Anxiety disorder unspecified. Psychotic disorder unspecified. Plan: The patient slept poorly previous evening in fact he only received trazodone 25 mg instead of the scheduled 75 mg. We will increase it back to 75 mg h.s. and may add p.r.n. dosage depending on how he does. We will stop the Lamictal as it would have limited efficacy for his mixed bipolar symptoms and restarted Depakote. We will adjust this gradually with labs and valproic acid level to reach therapeutic level. Continue melatonin 9 mg h.s., Seroquel 200 mg 1700 and 50 mg t.i.d., Ativan 0.5 mg b.i.d. Make further adjustments as clinically indicated. Assessment: Vital Signs/I&O: Vital Signs Date Time Temp Pulse Resp B/P (MAP) Pulse Ox O2 Delivery O2 Flow Rate FiO2 08/21/19 06:11 98.1 87 20 101/66 (78) 93 I & O 08/20/19 08/20/19 08/21/19 15:00 23:00 07:00 Intake Total 840 ml 360 ml Balance 840 ml 360 ml Labs: Laboratory Tests Test 08/20/19 08:00 08/21/19 06:10 Glucose (Fingerstick) 98 mg/dL (70-99) White Blood Count 3.5 x10^3/uL (4.0-11.0) L Red Blood Count 4.03 x10^6/uL (4.30-5.70) L Hemoglobin 11.7 g/dL (13.0-17.5) L Hematocrit 35.4 % (39.0-53.0) L Mean Corpuscular Volume 88 fL (79-100) Mean Corpuscular Hemoglobin 29 pg (25-35) Mean Corpuscular Hemoglobin Concent 33 g/dL (31-37) Red Cell Distribution Width 14.8 % (11.5-14.5) H Platelet Count 121 x10^3/uL (140-400) L Neutrophils (%) (Auto) 45 % (31-73) Lymphocytes (%) (Auto) 40 % (24-48) Monocytes (%) (Auto) 10 % (0-9) H Eosinophils (%) (Auto) 4 % (0-3) H Basophils (%) (Auto) 1 % (0-3) Neutrophils # (Auto) 1.6 x10^3uL (1.8-7.7) L Lymphocytes # (Auto) 1.4 x10^3/uL (1.0-4.8) Monocytes # (Auto) 0.3 x10^3/uL (0.0-1.1) Eosinophils # (Auto) 0.2 x10^3/uL (0.0-0.7) Basophils # (Auto) 0.0 x10^3/uL (0.0-0.2) Sodium Level 138 mmol/L (136-145) Potassium Level 4.4 mmol/L (3.5-5.1) Chloride Level 104 mmol/L (98-107) Carbon Dioxide Level 26 mmol/L (21-32) Anion Gap 8 (6-14) Blood Urea Nitrogen 42 mg/dL (8-26) H Creatinine 1.8 mg/dL (0.7-1.3) H Estimated GFR (Cockcroft-Gault) 37.7 BUN/Creatinine Ratio 23 (6-20) H Glucose Level 114 mg/dL (70-99) H Calcium Level 9.0 mg/dL (8.5-10.1) Total Bilirubin 0.2 mg/dL (0.2-1.0) Aspartate Amino Transferase (AST) 18 U/L (15-37) Alanine Aminotransferase (ALT) 16 U/L (16-63) Alkaline Phosphatase 89 U/L (46-116) Total Protein 7.1 g/dL (6.4-8.2) Albumin 3.5 g/dL (3.4-5.0) Albumin/Globulin Ratio 1.0 (1.0-1.7) Current Medications: I have reviewed the current psychotropics carefully including drug interactions. Risk benefit ratio favors no change other than as noted in my dictated progress note. Diagnosis: Problems: (1) Psychotic disorder (2) Anxiety disorder, unspecified (3) Bipolar disorder, current episode mixed, severe, with psychotic features BARON GOLDEN MD Aug 21, 2019 07:21
[2019-08-21] MEDS: AMANTADINE HCL 100 MG CAPSULE PO SCH ×2 (08:41→17:30)
[2019-08-21] MEDS: glipiZIDE 5 MG TABLET PO SCH (08:41)
[2019-08-21] MEDS: LORazepam 0.5 MG TABLET PO SCH ×2 (08:42→20:38)
[2019-08-21] MEDS: CARBIDOPA/LEVODOPA 25/100MG TABLET PO SCH ×3 (08:42→17:26)
[2019-08-21] MEDS: PANTOPRAZOLE 40 MG TABLET. PO SCH (08:42)
[2019-08-21] MEDS: DOCUSATE SODIUM 100 MG CAPSULE PO SCH ×2 (08:42→20:38)
[2019-08-21] MEDS: LEVOTHYROXINE 75 MCG TABLET PO SCH (08:42)
[2019-08-21] MEDS: QUEtiapine 50 MG TABLET. PO SCH ×3 (08:42→20:38)
[2019-08-21] MEDS ORDERED: DIVALPROEX ER 250 MG TAB.ER.24H. PO SCH (09:00)
[2019-08-21 16:13] VITALS: BP 116/73
[2019-08-21] MEDS: QUEtiapine 100 MG TABLET. PO SCH (17:26)
[2019-08-21] MEDS: DIVALPROEX ER 250 MG TAB.ER.24H. PO SCH (17:26)
[2019-08-21] MEDS: traZODone 50 MG TABLET. PO SCH (20:38)
[2019-08-21] MEDS: MELATONIN 3 MG TABLET PO SCH (20:38)
--- NOTE | 2019-08-21 22:00 | PDOC ---
Exam Note: Vance Note: This note is a late entry for 08/20/2019 covers elements not covered in my initial note. Subjective: The patient was seen face to face in the evening of 08/20/2019. Nursing report was with Jennifer LORD. He slept 6 hours previous night. He has been doing better, still somewhat anxious, with mood lability consistent with his bipolar disorder but pleasant in groups. He told his that he could walk but he remains in a wheelchair. I met with him in the evening in his room on 08/20/2019. Review of Systems: Ambulation impaired, in wheelchair. No CV, GI/, Pulmo nary, Eye, system symptoms on review. Mental Status Exam: Alert, oriented. He was very pleasant, interactive. I had informed him that I had reviewed records from the [facility] that we had just received including his past psychotropics and the renal side effect from the lithium which is why we are avoiding it. He had many questions all of which I answered. Speech is coherent. Abstraction fair. Computation impaired. Language function intact. Mood and affect still somewhat anxious, labile. No suicidal or homicidal ideation. Laboratory Data: Reviewed. Impression: Bipolar disorder, mixed with psychotic features. Anxiety disorder unspecified. Psychotic disorder unspecified. Plan: The patient is currently on Depakote ER 250 mg at supper. We will increase to 250 mg twice a day. Check CBC, CMP, valproic acid level in 3 days including ammonia level. Prior level was 10 on 08/17/2019 on 250 mg a day. Rest unchanged for now. Assessment: Vital Signs/I&O: Vital Signs Date Time Temp Pulse Resp B/P (MAP) Pulse Ox O2 Delivery O2 Flow Rate FiO2 08/21/19 20:17 98.7 91 08/21/19 16:13 80 16 116/73 (87) I & O 08/20/19 08/20/19 08/21/19 15:00 23:00 07:00 Intake Total 840 ml 360 ml Balance 840 ml 360 ml Labs: Laboratory Tests Test 08/21/19 06:10 08/21/19 08:06 White Blood Count 3.5 x10^3/uL (4.0-11.0) L Red Blood Count 4.03 x10^6/uL (4.30-5.70) L Hemoglobin 11.7 g/dL (13.0-17.5) L Hematocrit 35.4 % (39.0-53.0) L Mean Corpuscular Volume 88 fL (79-100) Mean Corpuscular Hemoglobin 29 pg (25-35) Mean Corpuscular Hemoglobin Concent 33 g/dL (31-37) Red Cell Distribution Width 14.8 % (11.5-14.5) H Platelet Count 121 x10^3/uL (140-400) L Neutrophils (%) (Auto) 45 % (31-73) Lymphocytes (%) (Auto) 40 % (24-48) Monocytes (%) (Auto) 10 % (0-9) H Eosinophils (%) (Auto) 4 % (0-3) H Basophils (%) (Auto) 1 % (0-3) Neutrophils # (Auto) 1.6 x10^3uL (1.8-7.7) L Lymphocytes # (Auto) 1.4 x10^3/uL (1.0-4.8) Monocytes # (Auto) 0.3 x10^3/uL (0.0-1.1) Eosinophils # (Auto) 0.2 x10^3/uL (0.0-0.7) Basophils # (Auto) 0.0 x10^3/uL (0.0-0.2) Sodium Level 138 mmol/L (136-145) Potassium Level 4.4 mmol/L (3.5-5.1) Chloride Level 104 mmol/L (98-107) Carbon Dioxide Level 26 mmol/L (21-32) Anion Gap 8 (6-14) Blood Urea Nitrogen 42 mg/dL (8-26) H Creatinine 1.8 mg/dL (0.7-1.3) H Estimated GFR (Cockcroft-Gault) 37.7 BUN/Creatinine Ratio 23 (6-20) H Glucose Level 114 mg/dL (70-99) H Calcium Level 9.0 mg/dL (8.5-10.1) Total Bilirubin 0.2 mg/dL (0.2-1.0) Aspartate Amino Transferase (AST) 18 U/L (15-37) Alanine Aminotransferase (ALT) 16 U/L (16-63) Alkaline Phosphatase 89 U/L (46-116) Total Protein 7.1 g/dL (6.4-8.2) Albumin 3.5 g/dL (3.4-5.0) Albumin/Globulin Ratio 1.0 (1.0-1.7) Glucose (Fingerstick) 141 mg/dL (70-99) H Current Medications: Meds: Current Medications Medications (Trade) Dose Ordered Sig/Daniel Route PRN Reason Start Time Stop Time Status Last Admin Dose Admin Divalproex Sodium (Depakote Er) 250 mg DAILY PO 08/21/19 09:00 08/21/19 08:42 I have reviewed the current psychotropics carefully including drug interactions. Risk benefit ratio favors no change other than as noted in my dictated progress note. Diagnosis: Problems: (1) Psychotic disorder (2) Anxiety disorder, unspecified (3) Bipolar disorder, current episode mixed, severe, with psychotic features BARON GOLDEN MD Aug 21, 2019 22:00
--- NOTE | 2019-08-21 22:01 | PDOC ---
Exam Note: Vance Note: Please also refer to the separate dictated note~for this date of service dictated separately.~Patient seen individually. Discussed the patient with Nursing staff reviewed the chart.~Reviewed interim history and current functioning. Reviewed vital signs,~Labs/ Radiology~and current medications noted below. Continue current treatment with the changes noted in the dictated addendum note Assessment: Vital Signs/I&O: Vital Signs Date Time Temp Pulse Resp B/P (MAP) Pulse Ox O2 Delivery O2 Flow Rate FiO2 08/21/19 20:17 98.7 91 08/21/19 16:13 80 16 116/73 (87) I & O 08/20/19 08/20/19 08/21/19 15:00 23:00 07:00 Intake Total 840 ml 360 ml Balance 840 ml 360 ml Labs: Laboratory Tests Test 08/21/19 06:10 08/21/19 08:06 White Blood Count 3.5 x10^3/uL (4.0-11.0) L Red Blood Count 4.03 x10^6/uL (4.30-5.70) L Hemoglobin 11.7 g/dL (13.0-17.5) L Hematocrit 35.4 % (39.0-53.0) L Mean Corpuscular Volume 88 fL (79-100) Mean Corpuscular Hemoglobin 29 pg (25-35) Mean Corpuscular Hemoglobin Concent 33 g/dL (31-37) Red Cell Distribution Width 14.8 % (11.5-14.5) H Platelet Count 121 x10^3/uL (140-400) L Neutrophils (%) (Auto) 45 % (31-73) Lymphocytes (%) (Auto) 40 % (24-48) Monocytes (%) (Auto) 10 % (0-9) H Eosinophils (%) (Auto) 4 % (0-3) H Basophils (%) (Auto) 1 % (0-3) Neutrophils # (Auto) 1.6 x10^3uL (1.8-7.7) L Lymphocytes # (Auto) 1.4 x10^3/uL (1.0-4.8) Monocytes # (Auto) 0.3 x10^3/uL (0.0-1.1) Eosinophils # (Auto) 0.2 x10^3/uL (0.0-0.7) Basophils # (Auto) 0.0 x10^3/uL (0.0-0.2) Sodium Level 138 mmol/L (136-145) Potassium Level 4.4 mmol/L (3.5-5.1) Chloride Level 104 mmol/L (98-107) Carbon Dioxide Level 26 mmol/L (21-32) Anion Gap 8 (6-14) Blood Urea Nitrogen 42 mg/dL (8-26) H Creatinine 1.8 mg/dL (0.7-1.3) H Estimated GFR (Cockcroft-Gault) 37.7 BUN/Creatinine Ratio 23 (6-20) H Glucose Level 114 mg/dL (70-99) H Calcium Level 9.0 mg/dL (8.5-10.1) Total Bilirubin 0.2 mg/dL (0.2-1.0) Aspartate Amino Transferase (AST) 18 U/L (15-37) Alanine Aminotransferase (ALT) 16 U/L (16-63) Alkaline Phosphatase 89 U/L (46-116) Total Protein 7.1 g/dL (6.4-8.2) Albumin 3.5 g/dL (3.4-5.0) Albumin/Globulin Ratio 1.0 (1.0-1.7) Glucose (Fingerstick) 141 mg/dL (70-99) H Current Medications: Meds: Current Medications Medications (Trade) Dose Ordered Sig/Daniel Route PRN Reason Start Time Stop Time Status Last Admin Dose Admin Divalproex Sodium (Depakote Er) 250 mg DAILY PO 08/21/19 09:00 08/21/19 08:42 I have reviewed the current psychotropics carefully including drug interactions. Risk benefit ratio favors no change other than as noted in my dictated progress note. Diagnosis: Problems: (1) Psychotic disorder (2) Anxiety disorder, unspecified (3) Bipolar disorder, current episode mixed, severe, with psychotic features BARON GOLDEN MD Aug 21, 2019 22:01
[2019-08-22 05:57] VITALS: BP 110/71
[2019-08-22] MEDS: SERTRALINE 25 MG TABLET. PO SCH (08:28)
[2019-08-22] MEDS: PANTOPRAZOLE 40 MG TABLET. PO SCH (08:28)
[2019-08-22] MEDS: QUEtiapine 50 MG TABLET. PO SCH ×3 (08:28→21:02)
[2019-08-22] MEDS: CARBIDOPA/LEVODOPA 25/100MG TABLET PO SCH ×3 (08:29→16:29)
[2019-08-22] MEDS: AMANTADINE HCL 100 MG CAPSULE PO SCH ×2 (08:29→16:29)
[2019-08-22] MEDS: glipiZIDE 5 MG TABLET PO SCH (08:29)
[2019-08-22] MEDS: LORazepam 0.5 MG TABLET PO SCH ×2 (08:29→21:03)
[2019-08-22] MEDS: DOCUSATE SODIUM 100 MG CAPSULE PO SCH ×2 (08:29→21:02)
[2019-08-22] MEDS: LEVOTHYROXINE 75 MCG TABLET PO SCH (08:29)
[2019-08-22 15:44] VITALS: BP 116/75
[2019-08-22] MEDS: CABERGOLINE 0.25 MG PO SCH (16:28)
[2019-08-22] MEDS: QUEtiapine 100 MG TABLET. PO SCH (16:29)
[2019-08-22] MEDS ORDERED: MELATONIN 3 MG TABLET PO SCH (17:45)
[2019-08-22] MEDS: MELATONIN 3 MG TABLET PO SCH (21:00)
[2019-08-22] MEDS: DIVALPROEX ER 500 MG TAB.ER.24H PO SCH (21:02)
[2019-08-22] MEDS: traZODone 50 MG TABLET. PO SCH (21:03)
--- NOTE | 2019-08-22 21:59 | PDOC ---
Exam Note: Vance Note: Please also refer to the separate dictated note~for this date of service dictated separately.~Patient seen individually. Discussed the patient with Nursing staff reviewed the chart.~Reviewed interim history and current functioning. Reviewed vital signs,~Labs/ Radiology~and current medications noted below. Continue current treatment with the changes noted in the dictated addendum note Assessment: Vital Signs/I&O: Vital Signs Date Time Temp Pulse Resp B/P (MAP) Pulse Ox O2 Delivery O2 Flow Rate FiO2 08/22/19 21:50 97.4 97 08/22/19 15:44 79 116/75 (89) 08/22/19 05:57 16 Room Air I & O 08/21/19 08/21/19 08/22/19 15:00 23:00 07:00 Intake Total 720 ml 600 ml Balance 720 ml 600 ml Labs: Laboratory Tests Test 08/22/19 07:55 Glucose (Fingerstick) 80 mg/dL (70-99) Current Medications: Meds: Current Medications Medications (Trade) Dose Ordered Sig/Daniel Route PRN Reason Start Time Stop Time Status Last Admin Dose Admin Divalproex Sodium (Depakote Er) 500 mg QHS PO 08/22/19 21:00 08/22/19 21:02 Sertraline HCl (Zoloft) 25 mg DAILY PO 08/22/19 09:00 08/22/19 08:28 Melatonin (Melatonin) 6 mg QHS PO 08/22/19 21:00 08/22/19 21:00 I have reviewed the current psychotropics carefully including drug interactions. Risk benefit ratio favors no change other than as noted in my dictated progress note. Diagnosis: Problems: (1) Psychotic disorder (2) Anxiety disorder, unspecified (3) Bipolar disorder, current episode mixed, severe, with psychotic features BARON GOLDEN MD Aug 22, 2019 21:59
[2019-08-23 06:32] VITALS: BP 98/68
[2019-08-23] MEDS: LEVOTHYROXINE 75 MCG TABLET PO SCH (06:38)
--- NOTE | 2019-08-23 07:33 | PDOC ---
Exam Note: Vance Note: This note is a late entry for 08/21/2019 covers elements not covered in my initial note. Subjective: The patient was seen face to face in the evening of 08/21/2019. Nursing report was with Mary LORD. He slept 6-1/2 hours previous night. Affect was somewhat depressed per nursing staff. The patient minimized this as I met with him in the evening. Review of Systems: Ambulation impaired, in wheelchair. No CV, , pulmonary, eye, system symptoms on review. Mental Status Exam: Alert, oriented. Speech is coherent. Abstraction fair. Computation impaired. Language function intact. Mood and affect somewhat depressed. No suicidal or homicidal ideation. Laboratory Data: Reviewed. Impression: Bipolar disorder, mixed with psychotic features. Anxiety disorder unspecified. Psychotic disorder unspecified. Plan: Given some of the patients mood symptoms, we will add Zoloft 25 mg a day. Maintain rest of the psychotropics unchanged. He remains on Depakote ER 250 mg b.i.d. We will change to 500 mg h.s. Continue rest of the psychotropics unchanged. Check labs on 08/24/2019 for the Depakote and adjust thereafter. Assessment: Vital Signs/I&O: Vital Signs Date Time Temp Pulse Resp B/P (MAP) Pulse Ox O2 Delivery O2 Flow Rate FiO2 08/23/19 06:32 97.9 83 16 98/68 (78) 94 08/22/19 05:57 Room Air I & O 08/22/19 08/22/19 08/23/19 15:00 23:00 07:00 Intake Total 480 ml 420 ml Balance 480 ml 420 ml Labs: Laboratory Tests Test 08/22/19 07:55 Glucose (Fingerstick) 80 mg/dL (70-99) Current Medications: Meds: Current Medications Medications (Trade) Dose Ordered Sig/Daniel Route PRN Reason Start Time Stop Time Status Last Admin Dose Admin Divalproex Sodium (Depakote Er) 500 mg QHS PO 08/22/19 21:00 08/22/19 21:02 Sertraline HCl (Zoloft) 25 mg DAILY PO 08/22/19 09:00 08/22/19 08:28 Melatonin (Melatonin) 6 mg QHS PO 08/22/19 21:00 08/22/19 21:00 I have reviewed the current psychotropics carefully including drug interactions. Risk benefit ratio favors no change other than as noted in my dictated progress note. Diagnosis: Problems: (1) Psychotic disorder (2) Anxiety disorder, unspecified (3) Bipolar disorder, current episode mixed, severe, with psychotic features BARON GOLDEN MD Aug 23, 2019 07:33
--- NOTE | 2019-08-23 07:51 | PDOC ---
Exam Note: Vance Note: This note is a late entry for 08/22/2019 covers elements not covered in my initial note. Subjective: The patient was seen face to face in the evening of 08/22/2019. Nursing report was with Jennifer LORD. He slept 2-1/2 hours previous night. He remains somewhat withdrawn, paranoid, believed people were purposely switching on the AC for some interior motives. Review of Systems: Ambulation impaired, in wheelchair. No CV, , pulmonary, eye, system symptoms on review. Mental Status Exam: Alert, oriented. Speech is coherent. Abstraction fair. Computation impaired. Language function intact. Mood and affect is improved, somewhat interactive and I met on two separate occasions in the evening. No suicidal or homicidal ideation. Laboratory Data: Reviewed. Impression: Bipolar disorder, mixed with psychotic features. Anxiety disorder unspecified. Psychotic disorder unspecified. Plan: Valproic acid level to be checked on 08/23 and we will adjust the Depakote thereafter. We will reduce the melatonin down from 9 mg to 6 mg h.s. Assessment: Vital Signs/I&O: Vital Signs Date Time Temp Pulse Resp B/P (MAP) Pulse Ox O2 Delivery O2 Flow Rate FiO2 08/23/19 06:32 97.9 83 16 98/68 (78) 94 08/22/19 05:57 Room Air I & O 08/22/19 08/22/19 08/23/19 15:00 23:00 07:00 Intake Total 480 ml 420 ml Balance 480 ml 420 ml Labs: Laboratory Tests Test 08/22/19 07:55 Glucose (Fingerstick) 80 mg/dL (70-99) Current Medications: Meds: Current Medications Medications (Trade) Dose Ordered Sig/Daniel Route PRN Reason Start Time Stop Time Status Last Admin Dose Admin Divalproex Sodium (Depakote Er) 500 mg QHS PO 08/22/19 21:00 08/22/19 21:02 Sertraline HCl (Zoloft) 25 mg DAILY PO 08/22/19 09:00 08/22/19 08:28 Melatonin (Melatonin) 6 mg QHS PO 08/22/19 21:00 08/22/19 21:00 I have reviewed the current psychotropics carefully including drug interactions. Risk benefit ratio favors no change other than as noted in my dictated progress note. Diagnosis: Problems: (1) Psychotic disorder (2) Anxiety disorder, unspecified (3) Bipolar disorder, current episode mixed, severe, with psychotic features BARON GOLDEN MD Aug 23, 2019 07:51
[2019-08-23] MEDS: QUEtiapine 50 MG TABLET. PO SCH ×3 (08:15→20:44)
[2019-08-23] MEDS: glipiZIDE 5 MG TABLET PO SCH (08:15)
[2019-08-23] MEDS: DOCUSATE SODIUM 100 MG CAPSULE PO SCH ×2 (08:16→20:44)
[2019-08-23] MEDS: LORazepam 0.5 MG TABLET PO SCH ×2 (08:16→20:44)
[2019-08-23] MEDS: PANTOPRAZOLE 40 MG TABLET. PO SCH (08:16)
[2019-08-23] MEDS: SERTRALINE 25 MG TABLET. PO SCH (08:16)
[2019-08-23] MEDS: CARBIDOPA/LEVODOPA 25/100MG TABLET PO SCH ×3 (08:16→17:35)
[2019-08-23] MEDS: AMANTADINE HCL 100 MG CAPSULE PO SCH ×2 (08:16→17:34)
[2019-08-23 09:31] LABS: BASO % 1 % (0-3); EOS # 0.1 x10^3/uL (0.0-0.7); EOS % 4 % (0-3); HEMATOCRIT 34.5 % (39.0-53.0); HEMOGLOBIN 11.4 g/dL (13.0-17.5); LYMPH # 1.4 x10^3/uL (1.0-4.8); LYMPH % 39 % (24-48); MEAN CORPUSCULAR HEMOGLOBIN 29 pg (25-35); MEAN CORPUSCULAR HGB CONC 33 g/dL (31-37); MEAN CORPUSCULAR VOLUME 89 fL (79-100); MONO # 0.3 x10^3/uL (0.0-1.1); MONO % 10 % (0-9); NEUT # 1.7 x10^3uL (1.8-7.7); NEUT % 47 % (31-73); PLATELET COUNT 117 x10^3/uL (140-400); RED CELL DISTRIBUTION WIDTH 14.9 % (11.5-14.5); WHITE BLOOD COUNT 3.5 x10^3/uL (4.0-11.0)
[2019-08-23 09:48] LABS: ALBUMIN 3.7 g/dL (3.4-5.0); ALBUMIN/GLOBULIN RATIO 1.1 (1.0-1.7); CALCIUM 8.8 mg/dL (8.5-10.1); CREATININE 1.9 mg/dL (0.7-1.3); GFR 35.4; POTASSIUM 4.5 mmol/L (3.5-5.1); TOTAL BILIRUBIN 0.2 mg/dL (0.2-1.0); TOTAL PROTEIN 7.2 g/dL (6.4-8.2)
[2019-08-23 16:19] VITALS: BP 115/76
[2019-08-23] MEDS: QUEtiapine 100 MG TABLET. PO SCH (17:37)
[2019-08-23] MEDS: DIVALPROEX ER 500 MG TAB.ER.24H PO SCH (20:44)
[2019-08-23] MEDS: MELATONIN 3 MG TABLET PO SCH (20:44)
[2019-08-23] MEDS: traZODone 50 MG TABLET. PO SCH ×2 (20:45→23:44)
--- NOTE | 2019-08-23 22:11 | PDOC ---
Exam Note: Vance Note: Please also refer to the separate dictated note~for this date of service dictated separately.~Patient seen individually. Discussed the patient with Nursing staff reviewed the chart.~Reviewed interim history and current functioning. Reviewed vital signs,~Labs/ Radiology~and current medications noted below. Continue current treatment with the changes noted in the dictated addendum note Assessment: Vital Signs/I&O: Vital Signs Date Time Temp Pulse Resp B/P (MAP) Pulse Ox O2 Delivery O2 Flow Rate FiO2 08/23/19 21:44 98.0 97 08/23/19 16:19 95 18 115/76 (89) 08/22/19 05:57 Room Air I & O 08/22/19 08/22/19 08/23/19 15:00 23:00 07:00 Intake Total 480 ml 420 ml Balance 480 ml 420 ml Labs: Laboratory Tests Test 08/23/19 07:59 08/23/19 09:14 Glucose (Fingerstick) 86 mg/dL (70-99) White Blood Count 3.5 x10^3/uL (4.0-11.0) L Red Blood Count 3.90 x10^6/uL (4.30-5.70) L Hemoglobin 11.4 g/dL (13.0-17.5) L Hematocrit 34.5 % (39.0-53.0) L Mean Corpuscular Volume 89 fL (79-100) Mean Corpuscular Hemoglobin 29 pg (25-35) Mean Corpuscular Hemoglobin Concent 33 g/dL (31-37) Red Cell Distribution Width 14.9 % (11.5-14.5) H Platelet Count 117 x10^3/uL (140-400) L Neutrophils (%) (Auto) 47 % (31-73) Lymphocytes (%) (Auto) 39 % (24-48) Monocytes (%) (Auto) 10 % (0-9) H Eosinophils (%) (Auto) 4 % (0-3) H Basophils (%) (Auto) 1 % (0-3) Neutrophils # (Auto) 1.7 x10^3uL (1.8-7.7) L Lymphocytes # (Auto) 1.4 x10^3/uL (1.0-4.8) Monocytes # (Auto) 0.3 x10^3/uL (0.0-1.1) Eosinophils # (Auto) 0.1 x10^3/uL (0.0-0.7) Basophils # (Auto) 0.0 x10^3/uL (0.0-0.2) Sodium Level 140 mmol/L (136-145) Potassium Level 4.5 mmol/L (3.5-5.1) Chloride Level 103 mmol/L (98-107) Carbon Dioxide Level 31 mmol/L (21-32) Anion Gap 6 (6-14) Blood Urea Nitrogen 36 mg/dL (8-26) H Creatinine 1.9 mg/dL (0.7-1.3) H Estimated GFR (Cockcroft-Gault) 35.4 BUN/Creatinine Ratio 19 (6-20) Glucose Level 146 mg/dL (70-99) H Calcium Level 8.8 mg/dL (8.5-10.1) Total Bilirubin 0.2 mg/dL (0.2-1.0) Aspartate Amino Transferase (AST) 15 U/L (15-37) Alanine Aminotransferase (ALT) 23 U/L (16-63) Alkaline Phosphatase 86 U/L (46-116) Total Protein 7.2 g/dL (6.4-8.2) Albumin 3.7 g/dL (3.4-5.0) Albumin/Globulin Ratio 1.1 (1.0-1.7) Current Medications: I have reviewed the current psychotropics carefully including drug interactions. Risk benefit ratio favors no change other than as noted in my dictated progress note. Diagnosis: Problems: (1) Psychotic disorder (2) Anxiety disorder, unspecified (3) Bipolar disorder, current episode mixed, severe, with psychotic features BARON GOLDEN MD Aug 23, 2019 22:11
[2019-08-24 06:00] VITALS: BP 107/71
[2019-08-24] MEDS: LEVOTHYROXINE 75 MCG TABLET PO SCH (06:20)
[2019-08-24 07:39] LABS: BASO % 1 % (0-3); EOS # 0.2 x10^3/uL (0.0-0.7); EOS % 4 % (0-3); HEMOGLOBIN 11.8 g/dL (13.0-17.5); LYMPH # 1.4 x10^3/uL (1.0-4.8); LYMPH % 37 % (24-48); MEAN CORPUSCULAR HEMOGLOBIN 29 pg (25-35); MEAN CORPUSCULAR HGB CONC 33 g/dL (31-37); MEAN CORPUSCULAR VOLUME 89 fL (79-100); MONO # 0.4 x10^3/uL (0.0-1.1); MONO % 11 % (0-9); NEUT # 1.7 x10^3uL (1.8-7.7); NEUT % 47 % (31-73); PLATELET COUNT 115 x10^3/uL (140-400); RED BLOOD COUNT 4.06 x10^6/uL (4.30-5.70); WHITE BLOOD COUNT 3.7 x10^3/uL (4.0-11.0)
[2019-08-24 08:24] LABS: ALBUMIN 3.5 g/dL (3.4-5.0); ALBUMIN/GLOBULIN RATIO 0.9 (1.0-1.7); ALK PHOS 89 U/L (46-116); ALT (SGPT) 17 U/L (16-63); ANION GAP 6 (6-14); AST (SGOT) 16 U/L (15-37); BLOOD UREA NITROGEN 32 mg/dL (8-26); BUN/CREATININE RATIO 20 (6-20); CALCIUM 8.4 mg/dL (8.5-10.1); CARBON DIOXIDE 31 mmol/L (21-32); CHLORIDE 103 mmol/L (98-107); CREATININE 1.6 mg/dL (0.7-1.3); GFR 43.2; GLUCOSE 101 mg/dL (70-99); POTASSIUM 4.5 mmol/L (3.5-5.1); SODIUM 140 mmol/L (136-145); TOTAL BILIRUBIN 0.2 mg/dL (0.2-1.0); TOTAL PROTEIN 7.2 g/dL (6.4-8.2); VAL ACID 34 mcg/mL (50-100)
[2019-08-24] MEDS: PANTOPRAZOLE 40 MG TABLET. PO SCH (08:28)
[2019-08-24] MEDS: glipiZIDE 5 MG TABLET PO SCH (08:28)
[2019-08-24] MEDS: AMANTADINE HCL 100 MG CAPSULE PO SCH ×2 (08:29→16:27)
[2019-08-24] MEDS: CARBIDOPA/LEVODOPA 25/100MG TABLET PO SCH ×3 (08:29→16:27)
[2019-08-24] MEDS: LORazepam 0.5 MG TABLET PO SCH ×2 (08:29→20:01)
[2019-08-24] MEDS: SERTRALINE 25 MG TABLET. PO SCH (08:29)
[2019-08-24] MEDS: QUEtiapine 50 MG TABLET. PO SCH ×3 (08:29→20:00)
[2019-08-24] MEDS: DOCUSATE SODIUM 100 MG CAPSULE PO SCH ×2 (08:29→20:02)
[2019-08-24 15:52] VITALS: BP 118/71
[2019-08-24] MEDS: QUEtiapine 100 MG TABLET. PO SCH (16:27)
[2019-08-24] MEDS: DIVALPROEX ER 500 MG TAB.ER.24H PO SCH (20:01)
[2019-08-24] MEDS: MELATONIN 3 MG TABLET PO SCH (20:01)
[2019-08-24] MEDS ORDERED: DIVALPROEX ER 500 MG TAB.ER.24H PO SCH (21:00)
--- NOTE | 2019-08-24 21:52 | PDOC ---
Exam Note: Vance Note: Please also refer to the separate dictated note~for this date of service dictated separately.~Patient seen individually. Discussed the patient with Nursing staff reviewed the chart.~Reviewed interim history and current functioning. Reviewed vital signs,~Labs/ Radiology~and current medications noted below. Continue current treatment with the changes noted in the dictated addendum note Assessment: Vital Signs/I&O: Vital Signs Date Time Temp Pulse Resp B/P (MAP) Pulse Ox O2 Delivery O2 Flow Rate FiO2 08/24/19 15:52 97.7 65 16 118/71 (87) 99 Room Air I & O 08/23/19 08/23/19 08/24/19 15:00 23:00 07:00 Intake Total 960 ml 480 ml Balance 960 ml 480 ml Labs: Laboratory Tests Test 08/24/19 07:12 08/24/19 07:38 White Blood Count 3.7 x10^3/uL (4.0-11.0) L Red Blood Count 4.06 x10^6/uL (4.30-5.70) L Hemoglobin 11.8 g/dL (13.0-17.5) L Hematocrit 36.0 % (39.0-53.0) L Mean Corpuscular Volume 89 fL (79-100) Mean Corpuscular Hemoglobin 29 pg (25-35) Mean Corpuscular Hemoglobin Concent 33 g/dL (31-37) Red Cell Distribution Width 15.0 % (11.5-14.5) H Platelet Count 115 x10^3/uL (140-400) L Neutrophils (%) (Auto) 47 % (31-73) Lymphocytes (%) (Auto) 37 % (24-48) Monocytes (%) (Auto) 11 % (0-9) H Eosinophils (%) (Auto) 4 % (0-3) H Basophils (%) (Auto) 1 % (0-3) Neutrophils # (Auto) 1.7 x10^3uL (1.8-7.7) L Lymphocytes # (Auto) 1.4 x10^3/uL (1.0-4.8) Monocytes # (Auto) 0.4 x10^3/uL (0.0-1.1) Eosinophils # (Auto) 0.2 x10^3/uL (0.0-0.7) Basophils # (Auto) 0.0 x10^3/uL (0.0-0.2) Sodium Level 140 mmol/L (136-145) Potassium Level 4.5 mmol/L (3.5-5.1) Chloride Level 103 mmol/L (98-107) Carbon Dioxide Level 31 mmol/L (21-32) Anion Gap 6 (6-14) Blood Urea Nitrogen 32 mg/dL (8-26) H Creatinine 1.6 mg/dL (0.7-1.3) H Estimated GFR (Cockcroft-Gault) 43.2 BUN/Creatinine Ratio 20 (6-20) Glucose Level 101 mg/dL (70-99) H Calcium Level 8.4 mg/dL (8.5-10.1) L Total Bilirubin 0.2 mg/dL (0.2-1.0) Aspartate Amino Transferase (AST) 16 U/L (15-37) Alanine Aminotransferase (ALT) 17 U/L (16-63) Alkaline Phosphatase 89 U/L (46-116) Ammonia 12 mcmol/L (11-34) Total Protein 7.2 g/dL (6.4-8.2) Albumin 3.5 g/dL (3.4-5.0) Albumin/Globulin Ratio 0.9 (1.0-1.7) L Valproic Acid Level 34 mcg/mL (50-100) L Valproic Acid Last Dose Date 08/23/19 Valproic Acid Last Dose Time 1700 Glucose (Fingerstick) 106 mg/dL (70-99) H Current Medications: Meds: Current Medications Medications (Trade) Dose Ordered Sig/Daniel Route PRN Reason Start Time Stop Time Status Last Admin Dose Admin Levothyroxine Sodium (Synthroid) 75 mcg DAILY06 PO 08/24/19 06:00 08/24/19 06:20 Divalproex Sodium (Depakote Er) 1,000 mg QHS PO 08/24/19 21:00 08/24/19 20:01 I have reviewed the current psychotropics carefully including drug interactions. Risk benefit ratio favors no change other than as noted in my dictated progress note. Diagnosis: Problems: (1) Psychotic disorder (2) Anxiety disorder, unspecified (3) Bipolar disorder, current episode mixed, severe, with psychotic features BARON GOLDEN MD Aug 24, 2019 21:52
[2019-08-25] MEDS: LEVOTHYROXINE 75 MCG TABLET PO SCH (05:56)
[2019-08-25 06:24] VITALS: BP 102/72
--- NOTE | 2019-08-25 07:31 | PDOC ---
Exam Note: Vance Note: This note is a late entry for 08/23/2019 covers elements not covered in my initial note. Subjective: The patient was seen face to face in the evening of 08/23/2019. Nursing report was with Julia LORD. He slept 5-1/4 hours previous night. He is compliant with medications. He has been more interactive with staff. We will check valproic acid level morning of 08/23. He has been calmer. Review of Systems: Ambulation impaired, in wheelchair. No CV, , pulmonary, eye, system symptoms on review. Mental Status Exam: Reasonably oriented. Speech is coherent. Abstraction fair. Computation impaired. Language function intact. Attention span short. Mood and affect is improved, has been calmer. No suicidal or homicidal ideation. Laboratory Data: Reviewed. Impression: Bipolar disorder, mixed with psychotic features. Anxiety disorder unspecified. Psychotic disorder unspecified. Plan: Valproic acid level to be checked on 08/23 and we will adjust Depakote after we get the repeat labs and valproic acid level on 08/23. Assessment: Vital Signs/I&O: Vital Signs Date Time Temp Pulse Resp B/P (MAP) Pulse Ox O2 Delivery O2 Flow Rate FiO2 08/25/19 06:24 98.0 86 12 102/72 (82) 97 08/24/19 15:52 Room Air I & O 08/24/19 08/24/19 08/25/19 15:00 23:00 07:00 Intake Total 840 ml 120 ml Balance 840 ml 120 ml Labs: Laboratory Tests Test 08/24/19 07:38 08/25/19 07:14 Glucose (Fingerstick) 106 mg/dL (70-99) H 78 mg/dL (70-99) Current Medications: Meds: Current Medications Medications (Trade) Dose Ordered Sig/Daniel Route PRN Reason Start Time Stop Time Status Last Admin Dose Admin Divalproex Sodium (Depakote Er) 1,000 mg QHS PO 08/24/19 21:00 08/24/19 20:01 I have reviewed the current psychotropics carefully including drug interactions. Risk benefit ratio favors no change other than as noted in my dictated progress note. Diagnosis: Problems: (1) Psychotic disorder (2) Anxiety disorder, unspecified (3) Bipolar disorder, current episode mixed, severe, with psychotic features BARON GOLDEN MD Aug 25, 2019 07:31
--- NOTE | 2019-08-25 07:48 | PDOC ---
Exam Note: Vance Note: This note is a late entry for 08/24/2019 covers elements not covered in my initial note. Subjective: The patient was seen face to face in the evening of 08/24/2019. Nursing report was with Julia LORD. He slept 4 hours previous night. His called, had many questions about his diagnoses, current psychotropics. These were addressed with her per nursing staff. The patient has been paranoid in his conversation with his . Valproic acid level today is 34 and Depakote ER 500 mg h.s. We will increase to 1000 mg p.o. h.s. We will check CBC, CMP, valproic acid level and ammonia level in 3 days. Review of Systems: Ambulation impaired, in wheelchair. No CV, , pulmonary, eye, system symptoms on review. Mental Status Exam: Alert, oriented. He was quite animated, verbal. He was having pork chops for dinner and was quite verbal and appropriate about this. Speech is coherent. Abstraction fair. Computation impaired. Language function intact. Mood and affect is improved, calmer. Laboratory Data: Reviewed. Impression: Bipolar disorder, mixed with psychotic features. Anxiety disorder unspecified. Psychotic disorder unspecified. Plan: We are increasing Depakote to 1000 mg h.s. We will check labs level in 3 days. Rest unchanged for now. Assessment: Vital Signs/I&O: Vital Signs Date Time Temp Pulse Resp B/P (MAP) Pulse Ox O2 Delivery O2 Flow Rate FiO2 08/25/19 06:24 98.0 86 12 102/72 (82) 97 08/24/19 15:52 Room Air I & O 08/24/19 08/24/19 08/25/19 15:00 23:00 07:00 Intake Total 840 ml 120 ml Balance 840 ml 120 ml Labs: Laboratory Tests Test 08/25/19 07:14 Glucose (Fingerstick) 78 mg/dL (70-99) Current Medications: Meds: Current Medications Medications (Trade) Dose Ordered Sig/Daniel Route PRN Reason Start Time Stop Time Status Last Admin Dose Admin Divalproex Sodium (Depakote Er) 1,000 mg QHS PO 08/24/19 21:00 08/24/19 20:01 I have reviewed the current psychotropics carefully including drug interactions. Risk benefit ratio favors no change other than as noted in my dictated progress note. Diagnosis: Problems: (1) Psychotic disorder (2) Anxiety disorder, unspecified (3) Bipolar disorder, current episode mixed, severe, with psychotic features BARON GOLDEN MD Aug 25, 2019 07:48
[2019-08-25] MEDS: DOCUSATE SODIUM 100 MG CAPSULE PO SCH ×2 (08:31→20:27)
[2019-08-25] MEDS: SERTRALINE 25 MG TABLET. PO SCH (08:31)
[2019-08-25] MEDS: PANTOPRAZOLE 40 MG TABLET. PO SCH (08:31)
[2019-08-25] MEDS: glipiZIDE 5 MG TABLET PO SCH (08:32)
[2019-08-25] MEDS: CARBIDOPA/LEVODOPA 25/100MG TABLET PO SCH ×3 (08:32→17:01)
[2019-08-25] MEDS: AMANTADINE HCL 100 MG CAPSULE PO SCH ×2 (08:32→17:01)
[2019-08-25] MEDS: QUEtiapine 50 MG TABLET. PO SCH ×3 (08:32→20:28)
[2019-08-25] MEDS: LORazepam 0.5 MG TABLET PO SCH ×2 (08:32→20:29)
[2019-08-25 15:56] VITALS: BP 118/80
[2019-08-25] MEDS: QUEtiapine 100 MG TABLET. PO SCH (17:01)
[2019-08-25] MEDS: MELATONIN 3 MG TABLET PO SCH (20:28)
[2019-08-25] MEDS: traZODone 50 MG TABLET. PO SCH (20:28)
[2019-08-25] MEDS: DIVALPROEX ER 500 MG TAB.ER.24H PO SCH (20:29)
[2019-08-26] MEDS: LEVOTHYROXINE 75 MCG TABLET PO SCH (05:22)
[2019-08-26 06:01] VITALS: BP 111/69
--- NOTE | 2019-08-26 06:40 | PDOC ---
Exam Note: Vance Note: This note is a late entry for 08/25/2019 covers elements not covered in my initial note. Subjective: The patient was seen face to face in the evening of 08/25/2019. Nursing report was with Sarabjit LORD. He slept 6 hours previous night. Previous night he was talking to no one sitting in his room. He did have his phone on him. He then told his reportedly that someone here and he states God has given him strength and now he is walking better than before. In fact no one has on the unit but the patient was transferred to the Medical-Surgical floor a couple of days back. Review of Systems: Ambulation impaired, in wheelchair. No CV, , pulmonary, eye, system symptoms on review. Mental Status Exam: Oriented reasonably. He was quite animated, verbal. Speech is coherent. Abstraction fair. Computation impaired. Language function intact. Mood and affect is improved, calmer. Laboratory Data: Reviewed. Impression: Bipolar disorder, mixed with psychotic features. Anxiety disorder unspecified. Psychotic disorder unspecified. Plan: The patients Depakote has been increased to 1 g p.o. h.s. ER since the level on 500 mg h.s. was 34, subtherapeutic. We will check CBC, CMP, valproic acid level, ammonia level in 3 days. Continue rest of the psychotropics unchanged. Assessment: Vital Signs/I&O: Vital Signs Date Time Temp Pulse Resp B/P (MAP) Pulse Ox O2 Delivery O2 Flow Rate FiO2 08/26/19 06:01 98.1 79 14 111/69 (83) 94 08/25/19 15:56 Room Air I & O 0 08/25/19 08/25/19 08/26/19 14:59 22:59 06:59 Intake Total 1200 ml 720 ml Balance 1200 ml 720 ml Labs: Laboratory Tests Test 08/25/19 07:14 08/25/19 19:21 Glucose (Fingerstick) 78 mg/dL (70-99) 140 mg/dL (70-99) H Current Medications: I have reviewed the current psychotropics carefully including drug interactions. Risk benefit ratio favors no change other than as noted in my dictated progress note. Diagnosis: Problems: (1) Psychotic disorder (2) Anxiety disorder, unspecified (3) Bipolar disorder, current episode mixed, severe, with psychotic features BARON GOLDEN MD Aug 26, 2019 06:40
[2019-08-26 07:44] LABS: CALCIUM 8.4 mg/dL (8.5-10.1); CREATININE 1.6 mg/dL (0.7-1.3); GFR 43.2; POTASSIUM 4.5 mmol/L (3.5-5.1)
[2019-08-26] MEDS: LORazepam 0.5 MG TABLET PO SCH ×2 (08:08→20:14)
[2019-08-26] MEDS: QUEtiapine 50 MG TABLET. PO SCH ×3 (08:09→20:16)
[2019-08-26] MEDS: CARBIDOPA/LEVODOPA 25/100MG TABLET PO SCH ×3 (08:09→17:55)
[2019-08-26] MEDS: glipiZIDE 5 MG TABLET PO SCH (08:09)
[2019-08-26] MEDS: SERTRALINE 25 MG TABLET. PO SCH (08:09)
[2019-08-26] MEDS: PANTOPRAZOLE 40 MG TABLET. PO SCH (08:09)
[2019-08-26] MEDS: DOCUSATE SODIUM 100 MG CAPSULE PO SCH ×2 (08:09→20:15)
[2019-08-26] MEDS: AMANTADINE HCL 100 MG CAPSULE PO SCH ×2 (08:10→17:56)
[2019-08-26 10:25] LABS: HEMATOCRIT 34.1 % (39.0-53.0); HEMOGLOBIN 11.3 g/dL (13.0-17.5); RED BLOOD COUNT 3.87 x10^6/uL (4.30-5.70); RED CELL DISTRIBUTION WIDTH 15.1 % (11.5-14.5); WHITE BLOOD COUNT 3.3 x10^3/uL (4.0-11.0)
[2019-08-26 15:57] VITALS: BP 145/70
--- NOTE | 2019-08-26 16:45 | TX PLAN ---
Interdisciplinary Tx Plan Admission Information August 17, 2019 at 15:32 Legal Status (on Admission): Voluntary DPOA/Guardian Name: Arthur Ortega Contact Verified Code Status: DNR Allergies: Coded Allergies: No Known Drug Allergies (Unverified , 08/17/19) Diagnoses Primary Diagnosis: Bipolar mixed, with psychotic features Reasons for Admission: Delusions, Sig. Change Sleep, Anxiety/Panic, Hallucinations, Suspicious/paranoid, Poor impulse control Problem in Patient's Words: I'm not sure if this is part of his Bipolar D/O or his Parkinson's, but he is getting worse. Additional Admission Comments: According to the intake, pt has periods of paranoia, delusions (seeing bugs and piecs of small paper on him) and agitation. Pt is hallucinating stating "God is telling him he's a bad person", thinks the TV is talking about him, anxious and at times combative Problems Active Problems: Agitation Delusions Hallucinations In isolation until 08/20/2019 Inactive Problems: Medication compliant Pt Strengths/Limitations Ability for [place]: Poor Cognitive Functioning/Ability: Fair Communication Skills/Ability: Fair Financial Resources: Fair Insight/Judgement: Fair Intellectual Ability: Poor Physical Health: Poor Social Skills: Fair Stability in Family: Good Stability in School/Work: Poor Verbal Skills: Fair Discharge Criteria Discharge Criteria: Able meet basic life need, Adequate arrangements @DC, Im proved behavior, Improved mood/thought Preliminary Discharge Plan Preliminary DC Plan: Acute Rehab Special Precautions Fall Risk: Moderate Initial D/C Plan Pt is requesting that pt attend rehab at [facility] at discharge Identified Discharge Needs: Continued mental health services Currently Utilized Resources Currently Utilized Resources/P: [facility] -- primary care physician and psychiatrist Referrals Community Resources: referral for placement Identified Problems/Hx/Goals Objectives/Short-Term Goals Short Term Goals: Dec. Hallucination/Delus, Dec. Outbursts, Improved Social Skills, Medication Stabilization, Promote Coping Skill Short Term Goals in Patient's: Medication and behavioral mgmt Interventions/Frequency Staff Interventions/Frequency&: Psychiatrist to assess pt at least 3x per week. Social Work to assess pt at least 2x per week. Nursing to assess medications, behavior and complete 15 minute checks daily. Encourage participation in group activities or 1:1 engagement based of activity assessment and goals. 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 Community Provider/Family Inpu: I need him to be in a position to where he can be safe and keep him at home as long as we can. 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 Pt is eating 100% of meals and sleeping on average 5.25 hours per night. Pt is mostly calm and compliant, but has noted more sundowning in the evening hours and noted some agitation; but it redirectable. Pt was started on Depakote ER 500mg q HS with a VPA of 34. Pt Depakote ER was increased to 1000mg with labs and levels on Saturday 08/26. Pt wishes for pt to be placed at [facility]. Pt has some physical ailments herself and needs for pt to be physically capable before he is able to return home. SW will continue to work with pt on placement and keep all parties updated. VONDA SALEH Aug 26, 2019 16:45
[2019-08-26] MEDS: CABERGOLINE 0.25 MG PO SCH (17:55)
[2019-08-26] MEDS: QUEtiapine 100 MG TABLET. PO SCH (17:56)
[2019-08-26] MEDS: traZODone 50 MG TABLET. PO SCH (20:15)
[2019-08-26] MEDS: DIVALPROEX ER 500 MG TAB.ER.24H PO SCH (20:15)
[2019-08-26] MEDS: MELATONIN 3 MG TABLET PO SCH (20:16)
--- NOTE | 2019-08-26 22:03 | PDOC ---
Exam Note: Vance Note: Please also refer to the separate dictated note~for this date of service dictated separately.~Patient seen individually. Discussed the patient with Nursing staff reviewed the chart.~Reviewed interim history and current functioning. Reviewed vital signs,~Labs/ Radiology~and current medications noted below. Continue current treatment with the changes noted in the dictated addendum note Assessment: Vital Signs/I&O: Vital Signs Date Time Temp Pulse Resp B/P (MAP) Pulse Ox O2 Delivery O2 Flow Rate FiO2 08/26/19 15:57 97.9 79 18 145/70 (95) 99 08/25/19 15:56 Room Air I & O 08/25/19 08/25/19 08/26/19 15:00 23:00 07:00 Intake Total 1200 ml 720 ml Balance 1200 ml 720 ml Labs: Laboratory Tests Test 08/26/19 06:35 08/26/19 07:51 White Blood Count 3.3 x10^3/uL (4.0-11.0) L Red Blood Count 3.87 x10^6/uL (4.30-5.70) L Hemoglobin 11.3 g/dL (13.0-17.5) L Hematocrit 34.1 % (39.0-53.0) L Mean Corpuscular Volume 88 fL (79-100) Mean Corpuscular Hemoglobin 29 pg (25-35) Mean Corpuscular Hemoglobin Concent 33 g/dL (31-37) Red Cell Distribution Width 15.1 % (11.5-14.5) H Platelet Count 120 x10^3/uL (140-400) L Sodium Level 141 mmol/L (136-145) Potassium Level 4.5 mmol/L (3.5-5.1) Chloride Level 105 mmol/L (98-107) Carbon Dioxide Level 31 mmol/L (21-32) Anion Gap 5 (6-14) L Blood Urea Nitrogen 33 mg/dL (8-26) H Creatinine 1.6 mg/dL (0.7-1.3) H Estimated GFR (Cockcroft-Gault) 43.2 Glucose Level 95 mg/dL (70-99) Calcium Level 8.4 mg/dL (8.5-10.1) L Glucose (Fingerstick) 73 mg/dL (70-99) Current Medications: I have reviewed the current psychotropics carefully including drug interactions. Risk benefit ratio favors no change other than as noted in my dictated progress note. Diagnosis: Problems: (1) Psychotic disorder (2) Anxiety disorder, unspecified (3) Bipolar disorder, current episode mixed, severe, with psychotic features BARON GOLDEN MD Aug 26, 2019 22:03
[2019-08-27] MEDS: LEVOTHYROXINE 75 MCG TABLET PO SCH (05:10)
[2019-08-27 05:18] VITALS: BP 120/73
[2019-08-27 07:41] LABS: ALBUMIN 3.4 g/dL (3.4-5.0); CALCIUM 8.5 mg/dL (8.5-10.1); CREATININE 1.8 mg/dL (0.7-1.3); GFR 37.7; POTASSIUM 4.6 mmol/L (3.5-5.1); TOTAL BILIRUBIN 0.2 mg/dL (0.2-1.0); TOTAL PROTEIN 6.8 g/dL (6.4-8.2)
[2019-08-27 07:49] LABS: VAL ACID 55 mcg/mL (50-100)
[2019-08-27 08:02] LABS: BASO % 1 % (0-3); EOS # 0.1 x10^3/uL (0.0-0.7); EOS % 4 % (0-3); HEMATOCRIT 33.8 % (39.0-53.0); HEMOGLOBIN 11.2 g/dL (13.0-17.5); LYMPH # 1.5 x10^3/uL (1.0-4.8); LYMPH % 46 % (24-48); MEAN CORPUSCULAR HEMOGLOBIN 29 pg (25-35); MEAN CORPUSCULAR HGB CONC 33 g/dL (31-37); MEAN CORPUSCULAR VOLUME 88 fL (79-100); MONO # 0.3 x10^3/uL (0.0-1.1); MONO % 9 % (0-9); NEUT # 1.3 x10^3uL (1.8-7.7); NEUT % 39 % (31-73); PLATELET COUNT 109 x10^3/uL (140-400); RED BLOOD COUNT 3.82 x10^6/uL (4.30-5.70); RED CELL DISTRIBUTION WIDTH 14.6 % (11.5-14.5); WHITE BLOOD COUNT 3.3 x10^3/uL (4.0-11.0)
[2019-08-27] MEDS: PANTOPRAZOLE 40 MG TABLET. PO SCH (08:25)
[2019-08-27] MEDS: SERTRALINE 25 MG TABLET. PO SCH (08:25)
[2019-08-27] MEDS: LORazepam 0.5 MG TABLET PO SCH ×2 (08:25→20:20)
[2019-08-27] MEDS: CARBIDOPA/LEVODOPA 25/100MG TABLET PO SCH ×3 (08:26→17:15)
[2019-08-27] MEDS: QUEtiapine 50 MG TABLET. PO SCH ×3 (08:26→20:20)
[2019-08-27] MEDS: DOCUSATE SODIUM 100 MG CAPSULE PO SCH ×2 (08:26→20:20)
[2019-08-27] MEDS: AMANTADINE HCL 100 MG CAPSULE PO SCH ×2 (08:26→17:15)
[2019-08-27] MEDS: glipiZIDE 5 MG TABLET PO SCH (08:26)
[2019-08-27 15:56] VITALS: BP 121/79
[2019-08-27] MEDS: QUEtiapine 100 MG TABLET. PO SCH (17:16)
[2019-08-27] MEDS: traZODone 150 MG TABLET. PO SCH (20:19)
[2019-08-27] MEDS: MELATONIN 3 MG TABLET PO SCH (20:19)
[2019-08-27] MEDS: DIVALPROEX ER 500 MG TAB.ER.24H PO SCH (20:20)
--- NOTE | 2019-08-27 21:43 | PDOC ---
Exam Note: Vance Note: Please also refer to the separate dictated note~for this date of service dictated separately.~Patient seen individually. Discussed the patient with Nursing staff reviewed the chart.~Reviewed interim history and current functioning. Reviewed vital signs,~Labs/ Radiology~and current medications noted below. Continue current treatment with the changes noted in the dictated addendum note Assessment: Vital Signs/I&O: Vital Signs Date Time Temp Pulse Resp B/P (MAP) Pulse Ox O2 Delivery O2 Flow Rate FiO2 08/27/19 15:56 97.6 74 16 121/79 (93) 98 08/25/19 15:56 Room Air I & O 08/26/19 08/26/19 08/27/19 15:00 23:00 07:00 Intake Total 960 ml 600 ml Balance 960 ml 600 ml Labs: Laboratory Tests Test 08/27/19 07:02 08/27/19 07:47 White Blood Count 3.3 x10^3/uL (4.0-11.0) L Red Blood Count 3.82 x10^6/uL (4.30-5.70) L Hemoglobin 11.2 g/dL (13.0-17.5) L Hematocrit 33.8 % (39.0-53.0) L Mean Corpuscular Volume 88 fL (79-100) Mean Corpuscular Hemoglobin 29 pg (25-35) Mean Corpuscular Hemoglobin Concent 33 g/dL (31-37) Red Cell Distribution Width 14.6 % (11.5-14.5) H Platelet Count 109 x10^3/uL (140-400) L Neutrophils (%) (Auto) 39 % (31-73) Lymphocytes (%) (Auto) 46 % (24-48) Monocytes (%) (Auto) 9 % (0-9) Eosinophils (%) (Auto) 4 % (0-3) H Basophils (%) (Auto) 1 % (0-3) Neutrophils # (Auto) 1.3 x10^3uL (1.8-7.7) L Lymphocytes # (Auto) 1.5 x10^3/uL (1.0-4.8) Monocytes # (Auto) 0.3 x10^3/uL (0.0-1.1) Eosinophils # (Auto) 0.1 x10^3/uL (0.0-0.7) Basophils # (Auto) 0.0 x10^3/uL (0.0-0.2) Sodium Level 142 mmol/L (136-145) Potassium Level 4.6 mmol/L (3.5-5.1) Chloride Level 105 mmol/L (98-107) Carbon Dioxide Level 32 mmol/L (21-32) Anion Gap 5 (6-14) L Blood Urea Nitrogen 32 mg/dL (8-26) H Creatinine 1.8 mg/dL (0.7-1.3) H Estimated GFR (Cockcroft-Gault) 37.7 BUN/Creatinine Ratio 18 (6-20) Glucose Level 79 mg/dL (70-99) Calcium Level 8.5 mg/dL (8.5-10.1) Total Bilirubin 0.2 mg/dL (0.2-1.0) Aspartate Amino Transferase (AST) 15 U/L (15-37) Alanine Aminotransferase (ALT) 16 U/L (16-63) Alkaline Phosphatase 79 U/L (46-116) Total Protein 6.8 g/dL (6.4-8.2) Albumin 3.4 g/dL (3.4-5.0) Albumin/Globulin Ratio 1.0 (1.0-1.7) Valproic Acid Level 55 mcg/mL (50-100) Valproic Acid Last Dose Date 08/26/19 Valproic Acid Last Dose Time 2100 Glucose (Fingerstick) 74 mg/dL (70-99) Current Medications: Meds: Current Medications Medications (Trade) Dose Ordered Sig/Daniel Route PRN Reason Start Time Stop Time Status Last Admin Dose Admin Trazodone HCl (Desyrel) 150 mg QHS PO 08/27/19 21:00 08/27/19 20:19 I have reviewed the current psychotropics carefully including drug interactions. Risk benefit ratio favors no change other than as noted in my dictated progress note. Diagnosis: Problems: (1) Psychotic disorder (2) Anxiety disorder, unspecified (3) Bipolar disorder, current episode mixed, severe, with psychotic features BARON GOLDEN MD Aug 27, 2019 21:43
[2019-08-28 05:57] VITALS: BP 99/64
[2019-08-28] MEDS: LEVOTHYROXINE 75 MCG TABLET PO SCH (06:21)
--- NOTE | 2019-08-28 07:22 | PDOC ---
Exam Note: Vance Note: This note is a late entry for 08/26/2019 covers elements not covered in my initial note. Subjective: The patient was seen face to face in the morning of 08/26/2019 for treatment team meeting with Paloma Lopez, and Kina (social service staff) with patients Radha attending. Nursing report was with Jennifer LORD. We had lengthy discussion with the patients diagnoses, past history with his . He used to go to [facility] according to the . I met with the patient in the evening. The patient at times forgets if he has taken his medications in the morning as per Jennifer LORD. He may have some short-term memory deficits that he tries to camouflage per nursing report. He is somewhat obsessed, anxious, repeatedly asking what about discharge plans which I addressed with him. He slept 5-3/4 hours previous night. Review of Systems: Ambulation impaired, in wheelchair. No CV, , pulmonary, eye, system symptoms on review. Mental Status Exam: Oriented reasonably. He was quite anxious, paranoid in the evening when the calls him and gets a little more forgetful, does better in the morning. Speech is coherent. Abstraction fair. Computation impaired. Language function intact. Mood and affect is improved, calmer. Laboratory Data: Reviewed. Impression: Bipolar disorder, mixed with psychotic features. Anxiety disorder unspecified. Psychotic disorder unspecified. Plan: Continue psychotropics from initial note. We will consult Dr. Bland to monitor the patients Parkinsons disease. The stated that he had been stable on Sinemet 25/100 mg two in the morning and two in the afternoon, one in the evening. We will check his labs and valproic acid level on 08/27/2019. Adjust further as clinically indicated. Assessment: Vital Signs/I&O: Vital Signs Date Time Temp Pulse Resp B/P (MAP) Pulse Ox O2 Delivery O2 Flow Rate FiO2 08/28/19 05:57 98.8 78 18 99/64 (76) 94 08/25/19 15:56 Room Air I & O 08/27/19 08/27/19 08/28/19 15:00 23:00 07:00 Intake Total 1200 ml 600 ml Balance 1200 ml 600 ml Labs: Laboratory Tests Test 08/27/19 07:47 6/10/20 07:19 Glucose (Fingerstick) 74 mg/dL (70-99) 78 mg/dL (70-99) Current Medications: Meds: Current Medications Medications (Trade) Dose Ordered Sig/Daniel Route PRN Reason Start Time Stop Time Status Last Admin Dose Admin Trazodone HCl (Desyrel) 150 mg QHS PO 08/27/19 21:00 08/27/19 20:19 I have reviewed the current psychotropics carefully including drug interactions. Risk benefit ratio favors no change other than as noted in my dictated progress note. Diagnosis: Problems: (1) Psychotic disorder (2) Anxiety disorder, unspecified (3) Bipolar disorder, current episode mixed, severe, with psychotic features BARON GOLDEN MD Aug 28, 2019 07:22
--- NOTE | 2019-08-28 07:23 | PDOC ---
Exam Note: Vance Note: This note is a late entry for 08/27/2019 covers elements not covered in my initial note. Subjective: The patient was seen face to face in the evening of 08/27/2019. Nursing report was with Jennifer OLRD. He slept 2-1/4 hours previous night. He is obsessed regarding discharge. Valproic acid level is 55, rest of the labs unremarkable. I met with him in his room. He slept poorly previous night. Trazodone was not repeated. He received just the scheduled 75 mg h.s. We will increase this to 150 mg h.s. Review of Systems: Ambulation impaired, in wheelchair. No CV, , pulmonary, eye, system symptoms on review. Mental Status Exam: Oriented reasonably. He was anxious, obsessed, paranoid. Speech is coherent. Abstraction fair. Computation impaired. Language function intact. Mood and affect is improved, calmer. Laboratory Data: Reviewed. Impression: Bipolar disorder, mixed with psychotic features. Anxiety disorder unspecified. Psychotic disorder unspecified. Plan: No change from initial note. Assessment: Vital Signs/I&O: Vital Signs Date Time Temp Pulse Resp B/P (MAP) Pulse Ox O2 Delivery O2 Flow Rate FiO2 08/28/19 05:57 98.8 78 18 99/64 (76) 94 08/25/19 15:56 Room Air I & O 08/27/19 08/27/19 08/28/19 15:00 23:00 07:00 Intake Total 1200 ml 600 ml Balance 1200 ml 600 ml Labs: Laboratory Tests Test 08/27/19 07:47 08/28/19 07:19 Glucose (Fingerstick) 74 mg/dL (70-99) 78 mg/dL (70-99) Current Medications: Meds: Current Medications Medications (Trade) Dose Ordered Sig/Daniel Route PRN Reason Start Time Stop Time Status Last Admin Dose Admin Trazodone HCl (Desyrel) 150 mg QHS PO 08/27/19 21:00 08/27/19 20:19 I have reviewed the current psychotropics carefully including drug interactions. Risk benefit ratio favors no change other than as noted in my dictated progress note. Diagnosis: Problems: (1) Psychotic disorder (2) Anxiety disorder, unspecified (3) Bipolar disorder, current episode mixed, severe, with psychotic features BARON GOLDEN MD Aug 28, 2019 07:23
[2019-08-28] MEDS: LORazepam 0.5 MG TABLET PO SCH ×2 (08:27→19:57)
[2019-08-28] MEDS: QUEtiapine 50 MG TABLET. PO SCH ×3 (08:27→19:58)
[2019-08-28] MEDS: DOCUSATE SODIUM 100 MG CAPSULE PO SCH ×2 (08:27→19:58)
[2019-08-28] MEDS: glipiZIDE 5 MG TABLET PO SCH (08:27)
[2019-08-28] MEDS: AMANTADINE HCL 100 MG CAPSULE PO SCH ×2 (08:27→16:38)
[2019-08-28] MEDS: SERTRALINE 25 MG TABLET. PO SCH (08:27)
[2019-08-28] MEDS: PANTOPRAZOLE 40 MG TABLET. PO SCH (08:27)
[2019-08-28] MEDS: CARBIDOPA/LEVODOPA 25/100MG TABLET PO SCH ×3 (08:28→16:39)
[2019-08-28 15:45] VITALS: BP 130/86
[2019-08-28] MEDS: QUEtiapine 100 MG TABLET. PO SCH (16:38)
[2019-08-28] MEDS: MELATONIN 3 MG TABLET PO SCH (19:57)
[2019-08-28] MEDS: traZODone 150 MG TABLET. PO SCH (19:57)
[2019-08-28] MEDS: DIVALPROEX 125 MG CAP.SPRINK PO SCH (19:57)
--- NOTE | 2019-08-28 22:04 | PDOC ---
Exam Note: Vance Note: Please also refer to the separate dictated note~for this date of service dictated separately.~Patient seen individually. Discussed the patient with Nursing staff reviewed the chart.~Reviewed interim history and current functioning. Reviewed vital signs,~Labs/ Radiology~and current medications noted below. Continue current treatment with the changes noted in the dictated addendum note Assessment: Vital Signs/I&O: Vital Signs Date Time Temp Pulse Resp B/P (MAP) Pulse Ox O2 Delivery O2 Flow Rate FiO2 08/28/19 15:45 97.7 69 18 130/86 (101) 94 08/25/19 15:56 Room Air I & O 08/27/19 08/27/19 08/28/19 15:00 23:00 07:00 Intake Total 1200 ml 600 ml Balance 1200 ml 600 ml Labs: Laboratory Tests Test 08/28/19 07:19 Glucose (Fingerstick) 78 mg/dL (70-99) Current Medications: Meds: Current Medications Medications (Trade) Dose Ordered Sig/Danile Route PRN Reason Start Time Stop Time Status Last Admin Dose Admin Divalproex Sodium (Depakote Sprinkles) 500 mg BID PO 08/28/19 21:00 08/28/19 19:57 I have reviewed the current psychotropics carefully including drug interactions. Risk benefit ratio favors no change other than as noted in my dictated progress note. Diagnosis: Problems: (1) Psychotic disorder (2) Anxiety disorder, unspecified (3) Bipolar disorder, current episode mixed, severe, with psychotic features BARON GOLDEN MD Aug 28, 2019 22:04
[2019-08-29 05:19] VITALS: BP 102/65
[2019-08-29] MEDS: LEVOTHYROXINE 75 MCG TABLET PO SCH (05:35)
[2019-08-29 06:19] LABS: BASO % 1 % (0-3); EOS # 0.2 x10^3/uL (0.0-0.7); EOS % 5 % (0-3); HEMATOCRIT 34.5 % (39.0-53.0); HEMOGLOBIN 11.6 g/dL (13.0-17.5); LYMPH # 1.6 x10^3/uL (1.0-4.8); LYMPH % 49 % (24-48); MEAN CORPUSCULAR HEMOGLOBIN 30 pg (25-35); MEAN CORPUSCULAR HGB CONC 34 g/dL (31-37); MEAN CORPUSCULAR VOLUME 88 fL (79-100); MONO # 0.3 x10^3/uL (0.0-1.1); MONO % 8 % (0-9); NEUT # 1.2 x10^3uL (1.8-7.7); NEUT % 37 % (31-73); PLATELET COUNT 117 x10^3/uL (140-400); RED BLOOD COUNT 3.92 x10^6/uL (4.30-5.70); RED CELL DISTRIBUTION WIDTH 14.6 % (11.5-14.5); WHITE BLOOD COUNT 3.2 x10^3/uL (4.0-11.0)
[2019-08-29 06:28] LABS: ALBUMIN 3.5 g/dL (3.4-5.0); CALCIUM 8.5 mg/dL (8.5-10.1); CREATININE 1.8 mg/dL (0.7-1.3); GFR 37.7; POTASSIUM 4.9 mmol/L (3.5-5.1); TOTAL BILIRUBIN 0.2 mg/dL (0.2-1.0); TOTAL PROTEIN 6.9 g/dL (6.4-8.2)
--- NOTE | 2019-08-29 07:07 | PN ---
DATE: 08/28/2019 This late entry 08/27 covers elements not covered in my initial note. SUBJECTIVE: I met with the patient evening of 08/27. Per Arnaud RN, the patient slept 6-1/4 hours previous night. Nursing staff have noted some short-term memory deficits. He was agitated in the morning. He tends to chew on his Depakote ER. We will change the Depakote ER 1000 mg at bedtime to Depakote Sprinkles 500 mg b.i.d. Check CBC, CMP, valproic acid level in 3 days. Met with him in his room. REVIEW OF SYSTEMS: Ambulation impaired, in wheelchair. No CV, , pulmonary, eye, ENT system symptoms on review. MENTAL STATUS EXAM: Oriented to himself, situation. Speech has some latency, coherent. Abstraction fair, computation impaired, language function intact, attention span short. Mood and affect somewhat anxious at times, but grandiosity, mood lability is improved with respect to his bipolar disorder as the Depakote is stabilized. LABORATORY DATA: Reviewed. IMPRESSION: Unchanged from initial note. PLAN: No change from initial note other than what is noted above. BARON GOLDEN MD DR: ARISTIDES/neena JOB#: [id number] / [id number]
[2019-08-29] MEDS: DIVALPROEX 125 MG CAP.SPRINK PO SCH ×2 (08:15→19:53)
[2019-08-29] MEDS: QUEtiapine 50 MG TABLET. PO SCH ×3 (08:15→19:54)
[2019-08-29] MEDS: DOCUSATE SODIUM 100 MG CAPSULE PO SCH ×2 (08:15→19:53)
[2019-08-29] MEDS: AMANTADINE HCL 100 MG CAPSULE PO SCH ×2 (08:15→16:30)
[2019-08-29] MEDS: glipiZIDE 5 MG TABLET PO SCH (08:15)
[2019-08-29] MEDS: CARBIDOPA/LEVODOPA 25/100MG TABLET PO SCH ×3 (08:15→16:30)
[2019-08-29] MEDS: SERTRALINE 25 MG TABLET. PO SCH (08:15)
[2019-08-29] MEDS: LORazepam 0.5 MG TABLET PO SCH ×2 (08:15→19:53)
[2019-08-29] MEDS: PANTOPRAZOLE 40 MG TABLET. PO SCH (08:15)
[2019-08-29 15:27] VITALS: BP 109/73
[2019-08-29] MEDS: CABERGOLINE 0.25 MG PO SCH (16:00)
[2019-08-29] MEDS: QUEtiapine 100 MG TABLET. PO SCH (17:00)
[2019-08-29] MEDS: MELATONIN 3 MG TABLET PO SCH (19:53)
[2019-08-29] MEDS: traZODone 150 MG TABLET. PO SCH (19:54)
--- NOTE | 2019-08-29 22:19 | PDOC ---
Exam Note: Vance Note: Please also refer to the separate dictated note~for this date of service dictated separately.~Patient seen individually. Discussed the patient with Nursing staff reviewed the chart.~Reviewed interim history and current functioning. Reviewed vital signs,~Labs/ Radiology~and current medications noted below. Continue current treatment with the changes noted in the dictated addendum note Assessment: Vital Signs/I&O: Vital Signs Date Time Temp Pulse Resp B/P (MAP) Pulse Ox O2 Delivery O2 Flow Rate FiO2 08/29/19 15:27 97.7 84 18 109/73 (85) 95 08/29/19 05:19 Room Air I & O 08/28/19 08/28/19 08/29/19 15:00 23:00 07:00 Intake Total 960 ml 480 ml Balance 960 ml 480 ml Labs: Laboratory Tests Test 08/29/19 05:47 08/29/19 07:39 White Blood Count 3.2 x10^3/uL (4.0-11.0) L Red Blood Count 3.92 x10^6/uL (4.30-5.70) L Hemoglobin 11.6 g/dL (13.0-17.5) L Hematocrit 34.5 % (39.0-53.0) L Mean Corpuscular Volume 88 fL (79-100) Mean Corpuscular Hemoglobin 30 pg (25-35) Mean Corpuscular Hemoglobin Concent 34 g/dL (31-37) Red Cell Distribution Width 14.6 % (11.5-14.5) H Platelet Count 117 x10^3/uL (140-400) L Neutrophils (%) (Auto) 37 % (31-73) Lymphocytes (%) (Auto) 49 % (24-48) H Monocytes (%) (Auto) 8 % (0-9) Eosinophils (%) (Auto) 5 % (0-3) H Basophils (%) (Auto) 1 % (0-3) Neutrophils # (Auto) 1.2 x10^3uL (1.8-7.7) L Lymphocytes # (Auto) 1.6 x10^3/uL (1.0-4.8) Monocytes # (Auto) 0.3 x10^3/uL (0.0-1.1) Eosinophils # (Auto) 0.2 x10^3/uL (0.0-0.7) Basophils # (Auto) 0.0 x10^3/uL (0.0-0.2) Sodium Level 142 mmol/L (136-145) Potassium Level 4.9 mmol/L (3.5-5.1) Chloride Level 105 mmol/L (98-107) Carbon Dioxide Level 33 mmol/L (21-32) H Anion Gap 4 (6-14) L Blood Urea Nitrogen 31 mg/dL (8-26) H Creatinine 1.8 mg/dL (0.7-1.3) H Estimated GFR (Cockcroft-Gault) 37.7 BUN/Creatinine Ratio 17 (6-20) Glucose Level 90 mg/dL (70-99) Calcium Level 8.5 mg/dL (8.5-10.1) Total Bilirubin 0.2 mg/dL (0.2-1.0) Aspartate Amino Transferase (AST) 13 U/L (15-37) L Alanine Aminotransferase (ALT) 13 U/L (16-63) L Alkaline Phosphatase 77 U/L (46-116) Total Protein 6.9 g/dL (6.4-8.2) Albumin 3.5 g/dL (3.4-5.0) Albumin/Globulin Ratio 1.0 (1.0-1.7) Glucose (Fingerstick) 76 mg/dL (70-99) Current Medications: I have reviewed the current psychotropics carefully including drug interactions. Risk benefit ratio favors no change other than as noted in my dictated progress note. Diagnosis: Problems: (1) Psychotic disorder (2) Anxiety disorder, unspecified (3) Bipolar disorder, current episode mixed, severe, with psychotic features BARON GOLDEN MD Aug 29, 2019 22:19
[2019-08-30] MEDS: LEVOTHYROXINE 75 MCG TABLET PO SCH (05:21)
[2019-08-30 05:46] VITALS: BP 105/71
[2019-08-30] MEDS: AMANTADINE HCL 100 MG CAPSULE PO SCH ×2 (07:49→17:03)
[2019-08-30] MEDS: glipiZIDE 5 MG TABLET PO SCH (07:49)
[2019-08-30] MEDS: PANTOPRAZOLE 40 MG TABLET. PO SCH (07:49)
[2019-08-30] MEDS: CARBIDOPA/LEVODOPA 25/100MG TABLET PO SCH ×3 (07:49→17:03)
[2019-08-30] MEDS: QUEtiapine 50 MG TABLET. PO SCH ×3 (07:49→20:39)
[2019-08-30] MEDS: DOCUSATE SODIUM 100 MG CAPSULE PO SCH ×2 (07:50→20:39)
[2019-08-30] MEDS: DIVALPROEX 125 MG CAP.SPRINK PO SCH ×2 (07:50→20:39)
[2019-08-30] MEDS: LORazepam 0.5 MG TABLET PO SCH ×2 (07:50→20:39)
[2019-08-30] MEDS: SERTRALINE 25 MG TABLET. PO SCH (07:50)
[2019-08-30 15:35] VITALS: BP 129/85
[2019-08-30] MEDS: QUEtiapine 100 MG TABLET. PO SCH (17:03)
[2019-08-30] MEDS: MELATONIN 3 MG TABLET PO SCH (20:39)
[2019-08-30] MEDS: traZODone 150 MG TABLET. PO SCH (20:40)
--- NOTE | 2019-08-30 22:15 | PDOC ---
Exam Note: Vance Note: Please also refer to the separate dictated note~for this date of service dictated separately.~Patient seen individually. Discussed the patient with Nursing staff reviewed the chart.~Reviewed interim history and current functioning. Reviewed vital signs,~Labs/ Radiology~and current medications noted below. Continue current treatment with the changes noted in the dictated addendum note Assessment: Vital Signs/I&O: Vital Signs Date Time Temp Pulse Resp B/P (MAP) Pulse Ox O2 Delivery O2 Flow Rate FiO2 08/30/19 15:35 97.9 68 18 129/85 (100) 98 08/29/19 05:19 Room Air I & O 08/29/19 08/29/19 08/30/19 15:00 23:00 07:00 Intake Total 1440 ml 480 ml Balance 1440 ml 480 ml Labs: Laboratory Tests Test 08/30/19 07:20 Glucose (Fingerstick) 80 mg/dL (70-99) Current Medications: I have reviewed the current psychotropics carefully including drug interactions. Risk benefit ratio favors no change other than as noted in my dictated progress note. Diagnosis: Problems: (1) Psychotic disorder (2) Anxiety disorder, unspecified (3) Bipolar disorder, current episode mixed, severe, with psychotic features BARON GOLDEN MD Aug 30, 2019 22:15
--- NOTE | 2019-08-30 22:24 | PN ---
DATE: 08/29/2019 PSYCHIATRIC PROGRESS NOTE This late entry 08/29/2019 covers elements not covered in my initial note. SUBJECTIVE: I met with the patient in the evening. Per Arnaud RN, the patient is doing better. Per social service staff, the patient has been accepted at the [facility] in [place]. He is still somewhat obsessive, anxious, but mood lability is improved. REVIEW OF SYSTEMS: Ambulation impaired with walker. No CV, , pulmonary, eye system symptoms on review. MENTAL STATUS EXAMINATION: Oriented reasonably. Speech is coherent, abstraction fair, computation impaired, language function intact, attention span short. Mood and affect somewhat withdrawn at times, generally better. LABORATORY DATA: Reviewed. IMPRESSION: Unchanged from initial note. PLAN: No change from initial note. MAN Joel GOLDEN MD DR: ARISTIDES/neena JOB#: [id number] / [id number]
[2019-08-31] MEDS: LEVOTHYROXINE 75 MCG TABLET PO SCH (05:47)
[2019-08-31 05:57] VITALS: BP 110/69
[2019-08-31 07:14] LABS: BASO % 1 % (0-3); EOS # 0.1 x10^3/uL (0.0-0.7); EOS % 4 % (0-3); HEMATOCRIT 34.4 % (39.0-53.0); HEMOGLOBIN 11.2 g/dL (13.0-17.5); LYMPH # 1.4 x10^3/uL (1.0-4.8); LYMPH % 45 % (24-48); MEAN CORPUSCULAR HEMOGLOBIN 29 pg (25-35); MEAN CORPUSCULAR HGB CONC 33 g/dL (31-37); MEAN CORPUSCULAR VOLUME 89 fL (79-100); MONO # 0.3 x10^3/uL (0.0-1.1); MONO % 8 % (0-9); NEUT # 1.3 x10^3uL (1.8-7.7); NEUT % 42 % (31-73); PLATELET COUNT 111 x10^3/uL (140-400); RED BLOOD COUNT 3.87 x10^6/uL (4.30-5.70); RED CELL DISTRIBUTION WIDTH 14.6 % (11.5-14.5); WHITE BLOOD COUNT 3.1 x10^3/uL (4.0-11.0)
[2019-08-31 07:30] LABS: ALBUMIN 3.4 g/dL (3.4-5.0); ALK PHOS 74 U/L (46-116); ALT (SGPT) 14 U/L (16-63); AST (SGOT) 16 U/L (15-37); BLOOD UREA NITROGEN 36 mg/dL (8-26); BUN/CREATININE RATIO 20 (6-20); CALCIUM 8.6 mg/dL (8.5-10.1); CARBON DIOXIDE 31 mmol/L (21-32); CREATININE 1.8 mg/dL (0.7-1.3); GFR 37.7; GLUCOSE 91 mg/dL (70-99); TOTAL BILIRUBIN 0.2 mg/dL (0.2-1.0); TOTAL PROTEIN 6.7 g/dL (6.4-8.2)
[2019-08-31] MEDS: glipiZIDE 5 MG TABLET PO SCH (08:15)
[2019-08-31] MEDS: CARBIDOPA/LEVODOPA 25/100MG TABLET PO SCH ×3 (08:15→17:42)
[2019-08-31] MEDS: AMANTADINE HCL 100 MG CAPSULE PO SCH ×2 (08:15→17:41)
[2019-08-31] MEDS: DIVALPROEX 125 MG CAP.SPRINK PO SCH ×2 (08:15→19:57)
[2019-08-31] MEDS: DOCUSATE SODIUM 100 MG CAPSULE PO SCH ×2 (08:15→19:56)
[2019-08-31] MEDS: PANTOPRAZOLE 40 MG TABLET. PO SCH (08:15)
[2019-08-31] MEDS: LORazepam 0.5 MG TABLET PO SCH ×2 (08:16→19:56)
[2019-08-31] MEDS: SERTRALINE 25 MG TABLET. PO SCH (08:16)
[2019-08-31] MEDS: QUEtiapine 50 MG TABLET. PO SCH ×3 (08:16→19:56)
[2019-08-31 13:08] LABS: ANION GAP 6 (6-14); CHLORIDE 107 mmol/L (98-107); POTASSIUM 5.1 mmol/L (3.5-5.1); SODIUM 144 mmol/L (136-145)
[2019-08-31 13:13] LABS: VAL ACID 54 mcg/mL (50-100)
[2019-08-31 15:52] VITALS: BP 131/82
[2019-08-31] MEDS: QUEtiapine 100 MG TABLET. PO SCH (17:41)
[2019-08-31] MEDS: traZODone 150 MG TABLET. PO SCH (19:56)
[2019-08-31] MEDS: MELATONIN 3 MG TABLET PO SCH (19:56)
--- NOTE | 2019-08-31 22:07 | PDOC ---
Exam Note: Vance Note: Please also refer to the separate dictated note~for this date of service dictated separately.~Patient seen individually. Discussed the patient with Nursing staff reviewed the chart.~Reviewed interim history and current functioning. Reviewed vital signs,~Labs/ Radiology~and current medications noted below. Continue current treatment with the changes noted in the dictated addendum note Assessment: Vital Signs/I&O: Vital Signs Date Time Temp Pulse Resp B/P (MAP) Pulse Ox O2 Delivery O2 Flow Rate FiO2 08/31/19 15:52 97.7 83 18 131/82 (98) 93 08/31/19 05:57 Room Air I & O 08/30/19 08/30/19 08/31/19 15:00 23:00 07:00 Intake Total 700 ml 340 ml Balance 700 ml 340 ml Labs: Laboratory Tests Test 08/31/19 06:39 08/31/19 07:17 White Blood Count 3.1 x10^3/uL (4.0-11.0) L Red Blood Count 3.87 x10^6/uL (4.30-5.70) L Hemoglobin 11.2 g/dL (13.0-17.5) L Hematocrit 34.4 % (39.0-53.0) L Mean Corpuscular Volume 89 fL (79-100) Mean Corpuscular Hemoglobin 29 pg (25-35) Mean Corpuscular Hemoglobin Concent 33 g/dL (31-37) Red Cell Distribution Width 14.6 % (11.5-14.5) H Platelet Count 111 x10^3/uL (140-400) L Neutrophils (%) (Auto) 42 % (31-73) Lymphocytes (%) (Auto) 45 % (24-48) Monocytes (%) (Auto) 8 % (0-9) Eosinophils (%) (Auto) 4 % (0-3) H Basophils (%) (Auto) 1 % (0-3) Neutrophils # (Auto) 1.3 x10^3uL (1.8-7.7) L Lymphocytes # (Auto) 1.4 x10^3/uL (1.0-4.8) Monocytes # (Auto) 0.3 x10^3/uL (0.0-1.1) Eosinophils # (Auto) 0.1 x10^3/uL (0.0-0.7) Basophils # (Auto) 0.0 x10^3/uL (0.0-0.2) Sodium Level 144 mmol/L (136-145) Potassium Level 5.1 mmol/L (3.5-5.1) Chloride Level 107 mmol/L (98-107) Carbon Dioxide Level 31 mmol/L (21-32) Anion Gap 6 (6-14) Blood Urea Nitrogen 36 mg/dL (8-26) H Creatinine 1.8 mg/dL (0.7-1.3) H Estimated GFR (Cockcroft-Gault) 37.7 BUN/Creatinine Ratio 20 (6-20) Glucose Level 91 mg/dL (70-99) Calcium Level 8.6 mg/dL (8.5-10.1) Total Bilirubin 0.2 mg/dL (0.2-1.0) Aspartate Amino Transferase (AST) 16 U/L (15-37) Alanine Aminotransferase (ALT) 14 U/L (16-63) L Alkaline Phosphatase 74 U/L (46-116) Total Protein 6.7 g/dL (6.4-8.2) Albumin 3.4 g/dL (3.4-5.0) Albumin/Globulin Ratio 1.0 (1.0-1.7) Valproic Acid Level 54 mcg/mL (50-100) Valproic Acid Last Dose Date 08/30/19 Valproic Acid Last Dose Time 2100 Glucose (Fingerstick) 85 mg/dL (70-99) Current Medications: I have reviewed the current psychotropics carefully including drug interactions. Risk benefit ratio favors no change other than as noted in my dictated progress note. Diagnosis: Problems: (1) Psychotic disorder (2) Anxiety disorder, unspecified (3) Bipolar disorder, current episode mixed, severe, with psychotic features BARON GOLDEN MD Aug 31, 2019 22:07
[2019-09-01] MEDS: LEVOTHYROXINE 75 MCG TABLET PO SCH (05:57)
[2019-09-01 06:04] VITALS: BP 97/65
[2019-09-01] MEDS: AMANTADINE HCL 100 MG CAPSULE PO SCH ×2 (08:13→17:13)
[2019-09-01] MEDS: CARBIDOPA/LEVODOPA 25/100MG TABLET PO SCH ×3 (08:13→17:13)
[2019-09-01] MEDS: DIVALPROEX 125 MG CAP.SPRINK PO SCH ×2 (08:13→20:37)
[2019-09-01] MEDS: glipiZIDE 5 MG TABLET PO SCH (08:14)
[2019-09-01] MEDS: SERTRALINE 25 MG TABLET. PO SCH (08:14)
[2019-09-01] MEDS: PANTOPRAZOLE 40 MG TABLET. PO SCH (08:14)
[2019-09-01] MEDS: QUEtiapine 50 MG TABLET. PO SCH ×3 (08:14→20:37)
[2019-09-01] MEDS: LORazepam 0.5 MG TABLET PO SCH ×2 (08:14→20:37)
[2019-09-01] MEDS: DOCUSATE SODIUM 100 MG CAPSULE PO SCH ×2 (08:14→20:37)
--- NOTE | 2019-09-01 12:34 | PN ---
DATE: 08/30/2019 PSYCHIATRIC PROGRESS NOTE This late entry 08/30/2019 covers elements not covered in my initial note. SUBJECTIVE: I met with the patient in the evening. Per Arnaud RN, the patient slept reasonably previous night, did well previous night, does have some short-term memory deficits. REVIEW OF SYSTEMS: Ambulation impaired, in wheelchair. No CV, , pulmonary, eye system symptoms on review. MENTAL STATUS EXAM: Reasonably oriented to himself and situation. Speech has some latency, often responses monosyllabic. Abstraction fair, computation impaired, language function intact. Mood and affect somewhat withdrawn. LABORATORY DATA: Reviewed. IMPRESSION: Unchanged from initial note. PLAN: No change from initial note. MAN Joel GOLDEN MD DR: ARISTIDES/neena JOB#: [id number] / [id number]
--- NOTE | 2019-09-01 12:38 | PN ---
DATE: 08/31/2019 This late entry 08/31/2019 covers elements not covered in my initial note. SUBJECTIVE: I met with the patient evening of 08/31/2019. Per POP Bob, the patient slept 6 hours previous night. He has been doing well, somewhat isolative, mood lability is improved. REVIEW OF SYSTEMS: Ambulation impaired, in wheelchair. No CV, , pulmonary, eye system symptoms on review. MENTAL STATUS EXAM: Reasonably oriented. Speech coherent, has some latency. Abstraction fair, computation impaired, language function intact, attention span short. Mood and affect showing improvement, less depressed, less labile. LABORATORY DATA: Reviewed. IMPRESSION: Unchanged from initial note. PLAN: No change from initial note with tentative discharge on 09/02/2019. MAN Joel GOLDEN MD DR: ARISTIDES/neena JOB#: [id number] / [id number]
[2019-09-01 16:53] VITALS: BP 117/78
[2019-09-01] MEDS: QUEtiapine 100 MG TABLET. PO SCH (17:13)
[2019-09-01] MEDS: traZODone 150 MG TABLET. PO SCH (20:37)
[2019-09-01] MEDS: MELATONIN 3 MG TABLET PO SCH (20:37)
[2019-09-01] MEDS ORDERED: METH28OI2 TP (22:12)
--- NOTE | 2019-09-01 22:13 | PDOC ---
Exam Note: Vance Note: Please also refer to the separate dictated note~for this date of service dictated separately.~Patient seen individually. Discussed the patient with Nursing staff reviewed the chart.~Reviewed interim history and current functioning. Reviewed vital signs,~Labs/ Radiology~and current medications noted below. Continue current treatment with the changes noted in the dictated addendum note Assessment: Vital Signs/I&O: Vital Signs Date Time Temp Pulse Resp B/P (MAP) Pulse Ox O2 Delivery O2 Flow Rate FiO2 09/01/19 16:53 97.8 69 18 117/78 (91) 99 09/01/19 06:04 Room Air I & O 08/31/19 08/31/19 09/01/19 15:00 23:00 07:00 Intake Total 1080 ml 600 ml Balance 1080 ml 600 ml Labs: Laboratory Tests Test 09/01/19 07:48 Glucose (Fingerstick) 73 mg/dL (70-99) Current Medications: I have reviewed the current psychotropics carefully including drug interactions. Risk benefit ratio favors no change other than as noted in my dictated progress note. Diagnosis: Problems: (1) Psychotic disorder (2) Anxiety disorder, unspecified (3) Bipolar disorder, current episode mixed, severe, with psychotic features BARON GOLDEN MD Sep 01, 2019 22:13
[2019-09-01] MEDS ORDERED: SERT25TA PO (22:14)
[2019-09-01] MEDS ORDERED: ACET325T9 PO (22:14)
[2019-09-01] MEDS ORDERED: MAG30ORA2 PO (22:15)
[2019-09-01] MEDS ORDERED: MAGN400O7 PO (22:16)
[2019-09-01] MEDS ORDERED: DIVA125C2 PO (22:21)
[2019-09-01] MEDS ORDERED: PANT40TA3 PO (22:21)
[2019-09-02 05:55] VITALS: BP 109/74
[2019-09-02] MEDS: LEVOTHYROXINE 75 MCG TABLET PO SCH (06:30)
[2019-09-02 06:38] LABS: BASO % 1 % (0-3); EOS # 0.1 x10^3/uL (0.0-0.7); EOS % 5 % (0-3); HEMATOCRIT 32.7 % (39.0-53.0); HEMOGLOBIN 10.6 g/dL (13.0-17.5); LYMPH # 1.4 x10^3/uL (1.0-4.8); LYMPH % 46 % (24-48); MEAN CORPUSCULAR HEMOGLOBIN 29 pg (25-35); MEAN CORPUSCULAR HGB CONC 33 g/dL (31-37); MEAN CORPUSCULAR VOLUME 89 fL (79-100); MONO # 0.3 x10^3/uL (0.0-1.1); MONO % 9 % (0-9); NEUT # 1.2 x10^3uL (1.8-7.7); NEUT % 40 % (31-73); PLATELET COUNT 95 x10^3/uL (140-400); RED BLOOD COUNT 3.68 x10^6/uL (4.30-5.70)
[2019-09-02 06:47] LABS: ALBUMIN 3.2 g/dL (3.4-5.0); CALCIUM 8.3 mg/dL (8.5-10.1); CREATININE 1.7 mg/dL (0.7-1.3); GFR 40.3; POTASSIUM 4.7 mmol/L (3.5-5.1); TOTAL BILIRUBIN 0.2 mg/dL (0.2-1.0); TOTAL PROTEIN 6.3 g/dL (6.4-8.2)
[2019-09-02 07:16] LABS: ANISOCYTOSIS SLIGHT; OVALOCYTES PRESENT; PLT ESTIMATE DECREASED (ADEQUATE); POLYCHROMASIA PRESENT
[2019-09-02] MEDS: CARBIDOPA/LEVODOPA 25/100MG TABLET PO SCH (08:18)
[2019-09-02] MEDS: PANTOPRAZOLE 40 MG TABLET. PO SCH (08:18)
[2019-09-02] MEDS: glipiZIDE 5 MG TABLET PO SCH (08:19)
[2019-09-02] MEDS: AMANTADINE HCL 100 MG CAPSULE PO SCH (08:19)
[2019-09-02] MEDS: SERTRALINE 25 MG TABLET. PO SCH (08:19)
[2019-09-02] MEDS: LORazepam 0.5 MG TABLET PO SCH (08:19)
[2019-09-02] MEDS: DOCUSATE SODIUM 100 MG CAPSULE PO SCH (08:19)
[2019-09-02] MEDS: DIVALPROEX 125 MG CAP.SPRINK PO SCH (08:19)
[2019-09-02] MEDS: QUEtiapine 50 MG TABLET. PO SCH (08:19)
--- NOTE | 2019-09-02 22:29 | PDOC ---
Exam Note: Vance Note: Please also refer to the separate dictated note~for this date of service dictated separately.~Patient seen individually. Discussed the patient with Nursing staff reviewed the chart.~Reviewed interim history and current functioning. Reviewed vital signs,~Labs/ Radiology~and current medications noted below. Continue current treatment with the changes noted in the dictated addendum note Assessment: Vital Signs/I&O: Vital Signs Date Time Temp Pulse Resp B/P (MAP) Pulse Ox O2 Delivery O2 Flow Rate FiO2 09/02/19 05:55 97.5 68 18 109/74 (86) 95 09/01/19 06:04 Room Air I & O 09/01/19 09/01/19 09/02/19 15:00 23:00 07:00 Intake Total 600 ml 580 ml Balance 600 ml 580 ml Labs: Laboratory Tests Test 09/02/19 05:53 09/02/19 07:15 09/02/19 07:53 White Blood Count 3.0 x10^3/uL (4.0-11.0) L Red Blood Count 3.68 x10^6/uL (4.30-5.70) L Hemoglobin 10.6 g/dL (13.0-17.5) L Hematocrit 32.7 % (39.0-53.0) L Mean Corpuscular Volume 89 fL (79-100) Mean Corpuscular Hemoglobin 29 pg (25-35) Mean Corpuscular Hemoglobin Concent 33 g/dL (31-37) Red Cell Distribution Width 15.0 % (11.5-14.5) H Platelet Count 95 x10^3/uL (140-400) L Neutrophils (%) (Auto) 40 % (31-73) Lymphocytes (%) (Auto) 46 % (24-48) Monocytes (%) (Auto) 9 % (0-9) Eosinophils (%) (Auto) 5 % (0-3) H Basophils (%) (Auto) 1 % (0-3) Neutrophils # (Auto) 1.2 x10^3uL (1.8-7.7) L Lymphocytes # (Auto) 1.4 x10^3/uL (1.0-4.8) Monocytes # (Auto) 0.3 x10^3/uL (0.0-1.1) Eosinophils # (Auto) 0.1 x10^3/uL (0.0-0.7) Basophils # (Auto) 0.0 x10^3/uL (0.0-0.2) Platelet Estimate Decreased (ADEQUATE) Polychromasia Present Anisocytosis Slight Ovalocytes Present Sodium Level 143 mmol/L (136-145) Potassium Level 4.7 mmol/L (3.5-5.1) Chloride Level 107 mmol/L (98-107) Carbon Dioxide Level 31 mmol/L (21-32) Anion Gap 5 (6-14) L Blood Urea Nitrogen 37 mg/dL (8-26) H Creatinine 1.7 mg/dL (0.7-1.3) H Estimated GFR (Cockcroft-Gault) 40.3 BUN/Creatinine Ratio 22 (6-20) H Glucose Level 87 mg/dL (70-99) Calcium Level 8.3 mg/dL (8.5-10.1) L Total Bilirubin 0.2 mg/dL (0.2-1.0) Aspartate Amino Transferase (AST) 14 U/L (15-37) L Alanine Aminotransferase (ALT) 14 U/L (16-63) L Alkaline Phosphatase 65 U/L (46-116) Total Protein 6.3 g/dL (6.4-8.2) L Albumin 3.2 g/dL (3.4-5.0) L Albumin/Globulin Ratio 1.0 (1.0-1.7) Glucose (Fingerstick) 61 mg/dL (70-99) L 76 mg/dL (70-99) Current Medications: I have reviewed the current psychotropics carefully including drug interactions. Risk benefit ratio favors no change other than as noted in my dictated progress note. Diagnosis: Problems: (1) Psychotic disorder (2) Anxiety disorder, unspecified (3) Bipolar disorder, current episode mixed, severe, with psychotic features BARON GOLDEN MD Sep 02, 2019 22:29
--- NOTE | 2019-09-03 15:03 | DS ---
DATE OF DISCHARGE: 09/02/2019 This late entry date of service 09/02/2019 covers elements not covered in my initial note. REASON FOR ADMISSION: Please refer to the admission history for details. Briefly, the patient is a 69-year-old male referred to us from [facility] where he presented from home on account of acute exacerbation of his bipolar disorder with active hallucinations, paranoia, worsening anxiety, combativeness. He was thinking that God was punishing him. He was hyper-mormon, unmanageable and had failed outpatient psychiatric interventions resulting in this referral. SIGNIFICANT FINDINGS AND CLINICAL COURSE: Following admission, the patient was seen daily individually by myself from a psychiatric standpoint, medical followup with Dr. Ivy/Dr. Gutierrez. 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 He was started on Depakote as a mood stabilizer and adjusted to Depakote Sprinkles 500 mg b.i.d. with a valproic acid level therapeutic at 55. Liver enzymes unremarkable. Dr. Bland was consulted for his Parkinson's and adjustments made as recommended by Dr. Bland from a neurological standpoint. He finally seemed to respond to a combination of the Depakote as mentioned, trazodone 150 mg at bedtime, Zoloft 25 mg a day, Ativan 0.5 mg b.i.d., melatonin 6 mg at bedtime, Seroquel 200 mg at 1700 and 50 mg t.i.d. REVIEW OF SYSTEMS: Prior to discharge on 09/02/2019, ambulation impaired, in wheelchair. No CV, , pulmonary, eye system symptoms on review. MENTAL STATUS EXAM: Reasonably oriented. Speech is coherent, has some latency. Abstraction fair, computation impaired, language function intact. Mood and affect is improved. No suicidal or homicidal ideation. No active psychotic symptoms. CONDITION AT DISCHARGE: Improved. FINAL DIAGNOSES: Bipolar 1 disorder, mixed with psychotic features, in partial remission; anxiety disorder, unspecified, hearing loss, Parkinson's disease. Rest unchanged from admission. DISCHARGE MEDICATIONS: Please refer to the MRAD. DISCHARGE INSTRUCTIONS: Outpatient psychiatric and medical followup at the nursing facility. Time for discharge day management greater than 30 minutes. MAN M. CHANTEL, MD DR: ARISTIDES/neena JOB#: [id number] / [id number]
--- NOTE | 2019-09-03 15:39 | PN ---
DATE: 09/01/2019 PSYCHIATRIC PROGRESS NOTE This late entry 09/01/2019 covers elements not covered in my initial note. SUBJECTIVE: I met with the patient evening of 09/01/2019. Per POP Bob, the patient slept 6 hours previous night. He did attend [employer] as part of the activity therapy group earlier in the day. REVIEW OF SYSTEMS: Ambulation impaired, in wheelchair. No CV, , pulmonary, eye system symptoms on review. MENTAL STATUS EXAM: Reasonably oriented. Speech coherent, has some latency. Abstraction fair, computation impaired, language function intact, attention span short. Mood and affect somewhat withdrawn. LABORATORY DATA: Reviewed. IMPRESSION: Unchanged from initial note. PLAN: No change from initial note. MAN Joel GOLDEN MD DR: ARISTIDES/neena JOB#: [id number] / [id number]
== END 2019-09-02 10:46 | DRG 885 ==
LOC: GEROPSY 15:32
PROVIDERS: ADMIT Psychiatry & Neurology Psychiatry; ATTEND Psychiatry & Neurology Psychiatry
DX: F31.64 Bipolar disorder, current episode mixed, severe, with psychotic features (principal); E03.9 Hypothyroidism, unspecified; E11.22 Type 2 diabetes mellitus with diabetic chronic kidney disease; E78.5 Hyperlipidemia, unspecified; F02.80 Dementia in other diseases classified elsewhere, unspecified severity, without behavioral disturbance, psychotic disturbance, mood disturbance, and anxiety; F41.9 Anxiety disorder, unspecified; G20 Parkinson's disease; H91.93 Unspecified hearing loss, bilateral; K21.9 Gastro-esophageal reflux disease without esophagitis; N18.3 Chronic kidney disease, stage 3 (moderate); N40.0 Benign prostatic hyperplasia without lower urinary tract symptoms; Z66 Do not resuscitate; Z79.899 Other long term (current) drug therapy; Z95.0 Presence of cardiac pacemaker; Z03.818 Encounter for observation for suspected exposure to other biological agents ruled out
CPT/HCPCS: 36415; 80048; 80053; 80061; 80164; 81001; 82140; 82306; 82607; 82947; 83036; 83540; 83550; 83735; 84436; 84443; 84480; 85025; 85027; 86592; 87299; 97110; 97116; 97530; 97535